=== PATIENT | male | born 1955 | race Caucasian/White ===

== ENCOUNTER 2022-12-01 10:59 | Inpatient (IN) | payer MEDICARE ==
[~2022-12-01 10:59] MED LIST: NALOXONE 0.4 MG/ML 1 ML VIAL IVP STA
[2022-12-01] MEDS ORDERED: DEXTROSE 50% SYRINGE 50 ML IVP STA (11:01)
[2022-12-01 11:09] LABS: Glucose,Whole Blood 21 mg/dL (70-110)
[2022-12-01 11:22] LABS: Glucose,Whole Blood 78 mg/dL (70-110)
--- NOTE | 2022-12-01 11:34 | CT ---
EXAMINATION TYPE: CT brain wo con DATE OF EXAM: 12/01/2022 COMPARISON: None HISTORY: Garland Meng male, confusion, Altered mental status TECHNIQUE: Examination was done in axial plane without intravenous contrast. Coronal and sagittal r econstructions performed. CT DLP: 1223.4 mGycm Automated exposure control for dose reduction was used. FINDINGS: There is no evidence of acute intracranial hemorrhage, acute ischemic changes, mass, mass-effect, or extra-axial fluid collection. There is no effacement of cerebral sulci or basal subarachnoid cister ns. There is no hydrocephalus. There is no midline shift. Briseno-white matter distinction is preserv ed. Mild periventricular white matter hypodensities. Moderate to severe mucosal thickening throughout the paranasal sinuses. Some layering fluid in the le ft frontal sinus. Orbits and globes are intact. Mastoid air cells well pneumatized. IMPRESSION: 1. No acute intracranial abnormality seen. Mild burden of chronic small vessel ischemic disease. 2. Moderate to severe chronic paranasal sinus disease. Possible superimposed acute left frontal sinus itis.
--- NOTE | 2022-12-01 11:48 | ED ---
General Adult HPI - General Stated complaint: Recheck Time Seen by Provider: 12/01/22 11:00 Source: patient, RN notes reviewed, old records reviewed - History of Present Illness Initial comments: This is a gentleman who is 67 years old. Patient comes in because the states he's been weak the last 2 days and last seen normal at 3 AM. states this morning when she saw him he was altered significantly. EMS states she was altered the way in and he was occasionally able to answer yes or no or follow some very basic commands but not consistently. EMS states that the patient had a low blood sugar of 64 but didn't give any glucose yet. Patient is unable to give any history is not yet here that is all the history we currently have. - Related Data Home Medications Medication Instructions Recorded Confirmed Atorvastatin [Lipitor] 20 mg PO DAILY 12/01/22 12/01/22 Metoprolol Tartrate [Lopressor] 100 mg PO BID 12/01/22 12/01/22 Pioglitazone [Actos] 45 mg PO DAILY 12/01/22 12/01/22 Tirzepatide [Mounjaro] 5 mg SQ MO 12/01/22 12/01/22 glyBURIDE/METFORMIN HCL 1 tab PO BID 12/01/22 12/01/22 [Glucovance 5-500 mg] ramipriL 2.5 mg PO DAILY 12/01/22 12/01/22 Allergies Allergy/AdvReac Type Severity Reaction Status Date / Time No Known Allergies Allergy Verified 12/01/22 11:07 Review of Systems ROS Statement: Those systems with pertinent positive or pertinent negative responses have been documented in the HPI. ROS Other: All systems not noted in ROS Statement are negative. General Exam - General Exam Comments Initial Comments: GENERAL: Patient is well-developed and well-nourished. Patient is nontoxic and well- hydrated and is in moderate distress. ENT: Neck is soft and supple. No significant lymphadenopathy is noted. Oropharynx is clear. Moist mucous membranes. EYES: The sclera were anicteric and conjunctiva were pink and moist. Unable to assess extraocular motion. PULMONARY: Patient has rhonchi bilaterally CARDIOVASCULAR: There is a regular rate and rhythm without any murmurs gallops or rubs. ABDOMEN: Soft and nontender with normal bowel sounds. SKIN: Skin is clear with no lesions or rashes and otherwise unremarkable. NEUROLOGIC: Patient is alert and oriented 0. Cranial nerves II through XII are grossly intact. Motor and sensory are also intact. Normal speech, volume and content. Symmetrical smile. MUSCULOSKELETAL: Normal extremities with adequate strength and full range of motion. 2+ edema LYMPHATICS: No significant lymphadenopathy is noted PSYCHIATRIC: Unable to assess Course Vital Signs 12/01/22 12/01/22 12/01/22 11:01 11:02 11:42 Temperature 96.6 F L 97.3 F L Pulse Rate 77 90 Respiratory 20 20 22 Rate Blood Pressure 152/72 91/63 O2 Sat by Pulse 90 L 95 Oximetry Medical Decision Making - Medical Decision Making EKG is interpreted by myself EKG shows atrial fibrillation at 96 bpm QRS is 111 QT interval 366 QTC is 419. EKG shows no ST segment elevation or depression Was pt. sent in by a medical professional or institution (, PA, LOT WORKER, urgent care, hospital, or correction...) When possible be specific @ -No Did you speak to anyone other than the patient for history (EMS, parent, family, police, friend...)? What history was obtained from this source @ -EMS gave all the history Did you review nursing and triage notes (agree or disagree)? Why? @ -I reviewed and agree with nursing and triage notes Were old charts reviewed (outside hosp., previous admission, EMS record, old EKG, old radiological studies, urgent care reports/EKG's, correction records)? Report findings @ -No old charts were reviewed Differential Diagnosis (chest pain, altered mental status, abdominal pain women, abdominal pain men, vaginal bleeding, weakness, fever, dyspnea, syncope, headache, dizziness, GI bleed, back pain, seizure, CVA, palpatations, mental health, musculoskeletal)? @ -Differential Altered Mental Status: Hypoglycemia, DKA, hypercapnia, ETOH, overdose, CO poisoning, trauma, myxedema coma, HTN encephalopathy, infection, encephalitis, psychosis, intercranial hemorrhage, hepatic encephalopathy, meningitis, CVA, this is not meant to be an all-inclusive list EKG interpreted by me (3pts min.). @ -As above X-rays interpreted by me (1pt min.). @ -Chest x-ray shows no paternal lateral view consistent with pneumonia CT interpreted by me (1pt min.). @ -CT of the brain shows no acute abnormality U/S interpreted by me (1pt. min.). @ -None done What testing was considered but not performed or refused? (CT, X-rays, U/S, labs)? Why? @ -None What meds were considered but not given or refused? Why? @ -None Did you discuss the management of the patient with other professionals (professionals i.e. , PA, LOT WORKER, lab, RT, psych nurse, social welfare clerk, senior research project manager, teacher, chief wellness officer, pillowcase cleaner)? Give summary @ -I spoke with [facility] hospitalist agreed to admit the patient Was smoking cessation discussed for >3mins.? @ -No Was critical care preformed (if so, how long)? @ -No Were there social determinants of health that impacted care today? How? (Homelessness, low income, unemployed, alcoholism, drug addiction, transportation, low edu. Level, literacy, decrease access to med. care, long term, rehab)? @ -No Was there de-escalation of care discussed even if they declined (Discuss DNR or withdrawal of care, Hospice)? DNR status @ -No What co-morbidities impacted this encounter? (DM, HTN, Smoking, COPD, CAD, Cancer, CVA, ARF, Chemo, Hep., AIDS, mental health diagnosis, sleep apnea, morbid obesity)? @ -None Was patient admitted / discharged? Hospital course, mention meds given and route, prescriptions, significant lab abnormalities, going to OR and other pertinent info. @ -Significantly altered when he arrived he was mottled and was not responding to staff at all. Patient's sugar was 21. The patient amp of D50 he started coming around slowly and eventually became alert and oriented to his baseline. Patient is coughing quite a bit in stating he's been sick for a few days x-ray shows pneumonia I will admit him and treat him for pneumonia. Undiagnosed new problem with uncertain prognosis? @ -No Drug Therapy requiring intensive monitoring for toxicity (Heparin, Nitro, Insulin, Cardizem)? @ -No Were any procedures done? @ -No Diagnosis/symptom? @ -Pneumonia Acute, or Chronic, or Acute on Chronic? @ -Acute Uncomplicated (without systemic symptoms) or Complicated (systemic symptoms)? @ -Complicated Side effects of treatment? @ -No Exacerbation, Progression, or Severe Exacerbation? @ -No Poses a threat to life or bodily function? How? (Chest pain, [place], [place], pneumonia, PE, COPD, DKA, ARF, appy, cholecystitis, CVA, Diverticulitis, Homicidal, Suicidal, threat to staff... and all critical care pts) @ -Yes this could lead to sepsis and end organ dysfunction Diagnosis/symptom? @ -Hypoglycemia Acute, or Chronic, or Acute on Chronic? @ -Acute Uncomplicated (without systemic symptoms) or Complicated (systemic symptoms)? @ -Complicated Side effects of treatment? @ -none Exacerbation, Progression, or Severe Exacerbation] @ -no Poses a threat to life or bodily function? @ -no - Lab Data Result diagrams: 12/01/22 11:37 12/01/22 11:37 Lab Results 12/01/22 12/01/22 12/01/22 Range/Units 11:03 11:21 11:37 WBC 6.5 (3.8-10.6) k/uL RBC 5.44 (4.30-5.90) m/uL Hgb 16.5 (13.0-17.5) gm/dL Hct 51.9 (39.0-53.0) % MCV 95.4 (80.0-100.0) fL MCH 30.3 (25.0-35.0) pg MCHC 31.8 (31.0-37.0) g/dL RDW 14.2 (11.5-15.5) % Plt Count 191 (150-450) k/uL MPV 10.1 Neutrophils % 66 % Lymphocytes % 15 % Monocytes % 17 % Eosinophils % 0 % Basophils % 0 % Neutrophils # 4.2 (1.3-7.7) k/uL Lymphocytes # 1.0 (1.0-4.8) k/uL Monocytes # 1.1 H (0-1.0) k/uL Eosinophils # 0.0 (0-0.7) k/uL Basophils # 0.0 (0-0.2) k/uL Hypochromasia Slight Sample Site ABG pH (7.35-7.45) ABG pCO2 (35-45) mmHg ABG pO2 (83-108) mmHg ABG HCO3 (21-25) mmol/L ABG Total CO2 (19-24) mmol/L ABG O2 Saturation (94-97) % ABG Base Excess mmol/L Andres Test FiO2 % Sodium (137-145) mmol/L Potassium (3.5-5.1) mmol/L Chloride (98-107) mmol/L Carbon Dioxide (22-30) mmol/L Anion Gap mmol/L BUN (9-20) mg/dL Creatinine (0.66-1.25) mg/dL Est GFR (CKD-EPI)AfAm (>60 ml/min/1.73 sqM) Est GFR (CKD-EPI)NonAf (>60 ml/min/1.73 sqM) Glucose (74-99) mg/dL POC Glucose (mg/dL) 21 L 78 (70-110) mg/dL POC Glu Sharepoint Analyst ID Edmond, Jake Pruitt, Jake Calcium (8.4-10.2) mg/dL Total Bilirubin (0.2-1.3) mg/dL AST (17-59) U/L ALT (4-49) U/L Alkaline Phosphatase (38-126) U/L Ammonia (<30) umol/L Troponin I (0.000-0.034) ng/mL Total Protein (6.3-8.2) g/dL Albumin (3.5-5.0) g/dL 12/01/22 12/01/22 12/01/22 Range/Units 11:37 11:37 11:37 WBC (3.8-10.6) k/uL RBC (4.30-5.90) m/uL Hgb (13.0-17.5) gm/dL Hct (39.0-53.0) % MCV (80.0-100.0) fL MCH (25.0-35.0) pg MCHC (31.0-37.0) g/dL RDW (11.5-15.5) % Plt Count (150-450) k/uL MPV Neutrophils % % Lymphocytes % % Monocytes % % Eosinophils % % Basophils % % Neutrophils # (1.3-7.7) k/uL Lymphocytes # (1.0-4.8) k/uL Monocytes # (0-1.0) k/uL Eosinophils # (0-0.7) k/uL Basophils # (0-0.2) k/uL Hypochromasia Sample Site ABG pH (7.35-7.45) ABG pCO2 (35-45) mmHg ABG pO2 (83-108) mmHg ABG HCO3 (21-25) mmol/L ABG Total CO2 (19-24) mmol/L ABG O2 Saturation (94-97) % ABG Base Excess mmol/L Andres Test FiO2 % Sodium 135 L (137-145) mmol/L Potassium 3.9 (3.5-5.1) mmol/L Chloride 98 (98-107) mmol/L Carbon Dioxide 25 (22-30) mmol/L Anion Gap 12 mmol/L BUN 28 H (9-20) mg/dL Creatinine 1.13 (0.66-1.25) mg/dL Est GFR (CKD-EPI)AfAm 77 (>60 ml/min/1.73 sqM) Est GFR (CKD-EPI)NonAf 66 (>60 ml/min/1.73 sqM) Glucose 134 H (74-99) mg/dL POC Glucose (mg/dL) (70-110) mg/dL POC Glu Sharepoint Analyst ID Calcium 8.2 L (8.4-10.2) mg/dL Total Bilirubin 1.7 H (0.2-1.3) mg/dL AST 47 (17-59) U/L ALT 26 (4-49) U/L Alkaline Phosphatase 69 (38-126) U/L Ammonia <9 (<30) umol/L Troponin I <0.012 (0.000-0.034) ng/mL Total Protein 8.0 (6.3-8.2) g/dL Albumin 4.0 (3.5-5.0) g/dL 12/01/22 12/01/22 12/01/22 Range/Units 11:53 12:20 12:45 WBC (3.8-10.6) k/uL RBC (4.30-5.90) m/uL Hgb (13.0-17.5) gm/dL Hct (39.0-53.0) % MCV (80.0-100.0) fL MCH (25.0-35.0) pg MCHC (31.0-37.0) g/dL RDW (11.5-15.5) % Plt Count (150-450) k/uL MPV Neutrophils % % Lymphocytes % % Monocytes % % Eosinophils % % Basophils % % Neutrophils # (1.3-7.7) k/uL Lymphocytes # (1.0-4.8) k/uL Monocytes # (0-1.0) k/uL Eosinophils # (0-0.7) k/uL Basophils # (0-0.2) k/uL Hypochromasia Sample Site r brach ABG pH 7.35 (7.35-7.45) ABG pCO2 47 H (35-45) mmHg ABG pO2 70 L (83-108) mmHg ABG HCO3 26 H (21-25) mmol/L ABG Total CO2 27 H (19-24) mmol/L ABG O2 Saturation 94.1 (94-97) % ABG Base Excess 0.0 mmol/L Andres Test na FiO2 32 % Sodium (137-145) mmol/L Potassium (3.5-5.1) mmol/L Chloride (98-107) mmol/L Carbon Dioxide (22-30) mmol/L Anion Gap mmol/L BUN (9-20) mg/dL Creatinine (0.66-1.25) mg/dL Est GFR (CKD-EPI)AfAm (>60 ml/min/1.73 sqM) Est GFR (CKD-EPI)NonAf (>60 ml/min/1.73 sqM) Glucose (74-99) mg/dL POC Glucose (mg/dL) 67 L 70 (70-110) mg/dL POC Glu Sharepoint Analyst ID Garland Tobiaselizabeth Ne Calcium (8.4-10.2) mg/dL Total Bilirubin (0.2-1.3) mg/dL AST (17-59) U/L ALT (4-49) U/L Alkaline Phosphatase (38-126) U/L Ammonia (<30) umol/L Troponin I (0.000-0.034) ng/mL Total Protein (6.3-8.2) g/dL Albumin (3.5-5.0) g/dL 12/01/22 Range/Units 14:14 WBC (3.8-10.6) k/uL RBC (4.30-5.90) m/uL Hgb (13.0-17.5) gm/dL Hct (39.0-53.0) % MCV (80.0-100.0) fL MCH (25.0-35.0) pg MCHC (31.0-37.0) g/dL RDW (11.5-15.5) % Plt Count (150-450) k/uL MPV Neutrophils % % Lymphocytes % % Monocytes % % Eosinophils % % Basophils % % Neutrophils # (1.3-7.7) k/uL Lymphocytes # (1.0-4.8) k/uL Monocytes # (0-1.0) k/uL Eosinophils # (0-0.7) k/uL Basophils # (0-0.2) k/uL Hypochromasia Sample Site ABG pH (7.35-7.45) ABG pCO2 (35-45) mmHg ABG pO2 (83-108) mmHg ABG HCO3 (21-25) mmol/L ABG Total CO2 (19-24) mmol/L ABG O2 Saturation (94-97) % ABG Base Excess mmol/L Andres Test FiO2 % Sodium (137-145) mmol/L Potassium (3.5-5.1) mmol/L Chloride (98-107) mmol/L Carbon Dioxide (22-30) mmol/L Anion Gap mmol/L BUN (9-20) mg/dL Creatinine (0.66-1.25) mg/dL Est GFR (CKD-EPI)AfAm (>60 ml/min/1.73 sqM) Est GFR (CKD-EPI)NonAf (>60 ml/min/1.73 sqM) Glucose (74-99) mg/dL POC Glucose (mg/dL) 110 (70-110) mg/dL POC Glu Sharepoint Analyst ID Ne Gillette Calcium (8.4-10.2) mg/dL Total Bilirubin (0.2-1.3) mg/dL AST (17-59) U/L ALT (4-49) U/L Alkaline Phosphatase (38-126) U/L Ammonia (<30) umol/L Troponin I (0.000-0.034) ng/mL Total Protein (6.3-8.2) g/dL Albumin (3.5-5.0) g/dL Disposition Clinical Impression: Altered mental status, Hypoglycemia, Pneumonia Disposition: ADMITTED IP TO THIS HOSP Referrals: None,Stated [REFERRING] - 1-2 days Time of Disposition: 14:26
[2022-12-01 11:57] LABS: ABG HCO3 26 mmol/L (21-25); ABG Oxygen Saturation 94.1 % (94-97); ABG PCO2 47 mmHg (35-45); ABG PH 7.35 (7.35-7.45); ABG PO2 70 mmHg (83-108); ABG TCO2 27 mmol/L (19-24)
[2022-12-01 12:15] LABS: Basophils % (A) 0 %; Eosinophils % (A) 0 %; HCT 51.9 % (39.0-53.0); HGB 16.5 gm/dL (13.0-17.5); Hypochromasia Slight; Lymphocytes % (A) 15 %; MCH 30.3 pg (25.0-35.0); MCHC 31.8 g/dL (31.0-37.0); MCV 95.4 fL (80.0-100.0); Mean Platelet Volume 10.1; Monocytes # (A) 1.1 k/uL (0-1.0); Monocytes % (A) 17 %; Neutrophils # (A) 4.2 k/uL (1.3-7.7); Neutrophils % (A) 66 %; Platelet Count 191 k/uL (150-450); RBC 5.44 m/uL (4.30-5.90); RDW 14.2 % (11.5-15.5); WBC 6.5 k/uL (3.8-10.6)
[2022-12-01 12:27] LABS: Glucose,Whole Blood 67 mg/dL (70-110)
[2022-12-01 12:31] LABS: ALT 26 U/L (4-49); African American GFR (CKD) 77 (>60 ml/min/1.73 sqM); Anion Gap 12 mmol/L; Blood Urea Nitrogen 28 mg/dL (9-20); Calcium 8.2 mg/dL (8.4-10.2); Carbon Dioxide 25 mmol/L (22-30); Chloride 98 mmol/L (98-107); Glucose 134 mg/dL (74-99); Non-African American GFR(CKD) 66 (>60 ml/min/1.73 sqM); Sodium 135 mmol/L (137-145); Total Bilirubin 1.7 mg/dL (0.2-1.3)
[2022-12-01 12:40] LABS: AST 47 U/L (17-59); Alkaline Phosphatase 69 U/L (38-126); Potassium 3.9 mmol/L (3.5-5.1)
--- NOTE | 2022-12-01 12:54 | XR ---
EXAMINATION TYPE: XR chest 2V DATE OF EXAM: 12/01/2022 COMPARISON: None HISTORY: 67-year-old male confusion, shortness of breath, altered mental status TECHNIQUE: AP and lateral views FINDINGS: Very low lung volumes and lordotic positioning limiting the evaluation. Heart appears mildly enlarged . Low lung volumes limits evaluation. Unable to exclude some abnormal opacity at the right base. IMPRESSION: Lordotic positioning and prominent hypoventilatory changes limits evaluation. The heart appears mildl y enlarged. Unable to exclude atelectasis or airspace disease at the right base.
[2022-12-01 12:57] LABS: Glucose,Whole Blood 70 mg/dL (70-110)
[2022-12-01] MEDS ORDERED: KETOROLAC 15 MG/ML 1 ML VIAL IVP STA (14:11)
[2022-12-01 14:16] LABS: Glucose,Whole Blood 110 mg/dL (70-110)
[2022-12-01] MEDS ORDERED: AZITHROMYCIN 500 MG in SODIUM CHLORIDE 0.9% 250 ML IVPB STA (14:26)
[2022-12-01] MEDS ORDERED: PNEUMONIA PROTOCOL UTILIZED 1 EACH MISC PO PRN (14:26)
[2022-12-01] MEDS: ALBUTEROL NEBULIZED 2.5 MG/3 ML INHALATION SCH ×2 (15:25→21:06)
[2022-12-01 15:59] LABS: Partial Thromboplastin Time 25.5 sec (22.0-30.0)
[2022-12-01 16:01] LABS: Appearance,Urine Cloudy (Clear); Bacteria,Urine Rare /hpf; Bilirubin,Urine Negative (Negative); Blood,Urine Negative (Negative); Color,Urine Yellow; Glucose,Urine (UA) 1+ (Negative); Hyaline Casts,Urine 25 /lpf (0-2); Ketones,Urine Negative (Negative); Leukocyte Esterase,Urine Negative (Negative); Mucus,Urine Rare /hpf; Nitrite,Urine Negative (Negative); PH, Urine 5.5 (5.0-8.0); Protein,Urine 1+ (Negative); RBC,Urine 1 /hpf (0-5); Specific Gravity,Urine 1.023 (1.001-1.035); Squamous Epithelial Cell,Urine <1 /hpf (0-4); WBC,Urine 3 /hpf (0-5)
[2022-12-01 16:11] LABS: Amphetamine Screen,Urine Not Detected (NotDetected); Barbiturate Screen,Urine Not Detected (NotDetected); Benzodiazepines Screen,Urine Not Detected (NotDetected); Cocaine Screen,Urine Not Detected (NotDetected); Methadone Screen, Urine Not Detected (NotDetected); Opiate Screen,Urine Not Detected (NotDetected); Oxycodone Screen, Urine Not Detected (NotDetected); Phencyclidine Screen,Urine Not Detected (NotDetected); Tricyclic Antidepressant,Urine Not Detected (NotDetected); Urn Cannabinoid Scrn Not Detected (NotDetected)
[2022-12-01 17:17] LABS: Glucose,Whole Blood 57 mg/dL (70-110)
[2022-12-01 17:47] LABS: Glucose,Whole Blood 79 mg/dL (70-110)
[2022-12-01] MEDS: metroNIDAZOLE-NS PMX 500 MG in SALINE 1 100ML.BAG IVPB SCH (19:17)
[2022-12-01 20:27] LABS: Glucose,Whole Blood 45 mg/dL (70-110)
[2022-12-01] MEDS ORDERED: DEXTROSE 50% SYRINGE 50 ML IVP PRN ×2 (20:44)
[2022-12-01 20:45] LABS: Glucose,Whole Blood 72 mg/dL (70-110)
[2022-12-01] MEDS: DEXTROSE 5%-0.9% NACL 1,000 ML IV SCH (21:04)
[2022-12-01] MEDS: INSULIN ASPART (NovoLOG) 100 UNIT/ML VIAL SQ SCH (21:06)
[2022-12-01] MEDS: METOPROLOL TARTRATE 50 MG TAB PO SCH (21:08)
[2022-12-01 22:24] LABS: Glucose,Whole Blood 106 mg/dL (70-110)
--- NOTE | 2022-12-01 23:32 | P.HPIM ---
History of Present Illness H&P Date: 12/01/22 Chief Complaint: Altered mental status Patient is a 67-year-old female with a known history of diabetes type 2 [id number], obstructive sleep apnea, asthma, prior history of smoking was brought to the hospital due to altered mental status. According to his patient has been very weak for the past 2 to 3 days and not eating well. Was last seen normal at about 3 AM. EMS was called due to altered mental status. He was: Planning. Patient has been taking his medications at home. Patient was very lethargic and barely awake on admission. He has been having watery diarrhea for the past 1 week. Denies any abdominal pain. Blood sugar was 21 on admission. Laboratory data showed WBC 6.4 hemoglobin 16.5 and platelets 191 Sodium 135 potassium 3.9 chloride 98 bicarb is 25 BUN 28 and creatinine 1.13 and blood sugar 134 after supplementation. Calcium 8.2 bilirubin level 1.7 liver enzymes are elevated troponin x1 negative Urinalysis is negative for infection. UDS negative. Chest x-ray showed lordotic positioning and prominent hypoventilatory changes Li mited evaluation. Heart appears mildly enlarged. Unable to exclude atelectasis or airspace disease at the right lung bases. EKG showed atrial fibrillation with aberrant conduction or ventricular premature complexes. CT head showed no acute intracranial abnormality seen. Mild burden of chronic small vessel ischemic disease. Moderate to severe chronic paraspinal disease. Possible superimposed acute left frontal sinusitis. Review of Systems ROS unobtainable: due to mental status Past Medical History Past Medical History: Asthma, Diabetes Mellitus, Sleep Apnea/CPAP/BIPAP Additional Past Medical History / Comment(s): Tachycardia History of Any Multi-Drug Resistant Organisms: None Reported Past Surgical History: Hernia Repair Past Anesthesia/Blood Transfusion Reactions: No Reported Reaction Past Psychological History: No Psychological Hx Reported Smoking Status: Former smoker, Unknown if ever smoked Past Alcohol Use History: None Reported Past Drug Use History: None Reported Medications and Allergies Home Medications Medication Instructions Recorded Confirmed Type Atorvastatin [Lipitor] 20 mg PO DAILY 12/01/22 12/01/22 History Metoprolol Tartrate [Lopressor] 100 mg PO BID 12/01/22 12/01/22 History Pioglitazone [Actos] 45 mg PO DAILY 12/01/22 12/01/22 History Tirzepatide [Mounjaro] 5 mg SQ MO 12/01/22 12/01/22 History glyBURIDE/METFORMIN HCL 1 tab PO BID 12/01/22 12/01/22 History [Glucovance 5-500 mg] ramipriL 2.5 mg PO DAILY 12/01/22 12/01/22 History Allergies Allergy/AdvReac Type Severity Reaction Status Date / Time No Known Allergies Allergy Verified 12/01/22 11:07 Physical Exam Vitals: Vital Signs Temp Pulse Pulse Resp BP BP Pulse Ox 12/01/22 20:17 98.9 F 95 22 103/63 94 L 12/01/22 18:43 110 H 18 114/68 94 L 12/01/22 17:24 98.7 F 96 18 117/66 98 12/01/22 16:00 96 18 123/63 97 12/01/22 15:33 96 18 12/01/22 15:28 98 18 98 12/01/22 15:00 94 18 99/61 98 12/01/22 14:34 90 18 132/59 98 12/01/22 11:42 97.3 F L 90 22 91/63 95 12/01/22 11:02 96.6 F L 77 20 152/72 90 L 12/01/22 11:01 20 Intake and Output 12/01/22 12/01/22 12/01/22 06:59 14:59 22:59 Other: Weight 113.398 kg 113.398 kg PHYSICAL EXAMINATION: Patient is lying in the bed comfortably, no acute distress, awake alert but lethargic and drowsy. HEENT: Normocephalic. Neck is supple. Pupils reactive. Nostrils clear. Oral cavity is moist. Neck reveals no JVD, carotid bruits, or thyromegaly. CHEST EXAMINATION: Trachea is central. Symmetrical expansion. Bibasilar diminished sounds. Coarse of breath sounds. Nonlabored breathing.. CARDIAC: Normal S1, S2 with no gallops. No murmurs ABDOMEN: Soft. Bowel sounds present. Nontender. No organomegaly. No abdominal bruits. Extremities: Bilateral lower extremity discoloration and venous stasis changes.. No clubbing or cyanosis Neurologically awake, alert, lethargic and weak. No gross focal neurological deficits noted Skin: No rash or skin lesions. Psychiatric: Coperative. Could not be assessed completely., Musculoskeletal: No joint swelling or deformity. Results CBC & Chem 7: 12/01/22 11:37 12/01/22 11:37 Labs: Abnormal Lab Results - Last 24 Hours (Table) 12/01/22 12/01/22 12/01/22 Range/Units 11:03 11:37 11:37 Monocytes # 1.1 H (0-1.0) k/uL ABG pCO2 (35-45) mmHg ABG pO2 (83-108) mmHg ABG HCO3 (21-25) mmol/L ABG Total CO2 (19-24) mmol/L Sodium 135 L (137-145) mmol/L BUN 28 H (9-20) mg/dL Glucose 134 H (74-99) mg/dL POC Glucose (mg/dL) 21 L (70-110) mg/dL Calcium 8.2 L (8.4-10.2) mg/dL Total Bilirubin 1.7 H (0.2-1.3) mg/dL Urine Protein (Negative) Urine Glucose (UA) (Negative) Urine Bacteria (None) /hpf Hyaline Casts (0-2) /lpf Urine Mucus (None) /hpf 12/01/22 12/01/22 12/01/22 Range/Units 11:53 12:20 15:41 Monocytes # (0-1.0) k/uL ABG pCO2 47 H (35-45) mmHg ABG pO2 70 L (83-108) mmHg ABG HCO3 26 H (21-25) mmol/L ABG Total CO2 27 H (19-24) mmol/L Sodium (137-145) mmol/L BUN (9-20) mg/dL Glucose (74-99) mg/dL POC Glucose (mg/dL) 67 L (70-110) mg/dL Calcium (8.4-10.2) mg/dL Total Bilirubin (0.2-1.3) mg/dL Urine Protein 1+ H (Negative) Urine Glucose (UA) 1+ H (Negative) Urine Bacteria Rare H (None) /hpf Hyaline Casts 25 H (0-2) /lpf Urine Mucus Rare H (None) /hpf 12/01/22 12/01/22 Range/Units 17:15 20:23 Monocytes # (0-1.0) k/uL ABG pCO2 (35-45) mmHg ABG pO2 (83-108) mmHg ABG HCO3 (21-25) mmol/L ABG Total CO2 (19-24) mmol/L Sodium (137-145) mmol/L BUN (9-20) mg/dL Glucose (74-99) mg/dL POC Glucose (mg/dL) 57 L 45 L (70-110) mg/dL Calcium (8.4-10.2) mg/dL Total Bilirubin (0.2-1.3) mg/dL Urine Protein (Negative) Urine Glucose (UA) (Negative) Urine Bacteria (None) /hpf Hyaline Casts (0-2) /lpf Urine Mucus (None) /hpf Thrombosis Risk Factor Assmnt - DVT/VTE Prophylaxis DVT/VTE Prophylaxis: Pharmacologic Prophylaxis ordered - Choose All That Apply Each Factor Represents 1 point: Obesity (BMI >25) Each Risk Factor Represents 2 Points: Age 61-74 years Thrombosis Risk Factor Assessment Total Risk Factor Score: 3 Thrombosis Risk Factor Assessment Level: Moderate Risk Assessment and Plan Assessment: Altered mental status due to hypoglycemia. Improving now Right basilar opacity possible pneumonia. Moderate to severe chronic paranasal sinus disease and acute left frontal sinu sitis. Acute diarrhea Atrial fibrillation with aberrant conduction Diabetes type 2 [id number]. Patient is on glipizide and metformin and Actos at home. Obstructive sleep apnea Prior history of smoking Asthma not in exacerbation Hypertension DVT prophylaxis with heparin subcu Plan: Patient will be continued on D5 normal saline due to hypoglycemia. Oral hypoglycemics is on hold. Continue to monitor CBG every hourly. Continue with antibiotics ceftriaxone and Flagyl for possible aspiration pneumonia. Follow-up culture reports. Cardiology evaluation due to atrial fibrillation/abnormal EKG. Discussed with his at bedside in detail. Prognosis is guarded at this time. Time with Patient: Greater than 30
[2022-12-02] MEDS: HEPARIN SODIUM,PORCINE/PF 5,000 UNIT/0.5 ML SYRINGE SQ SCH ×3 (00:06→17:33)
[2022-12-02] MEDS: metroNIDAZOLE-NS PMX 500 MG in SALINE 1 100ML.BAG IVPB SCH ×3 (00:06→17:30)
[2022-12-02 00:14] LABS: Glucose,Whole Blood 75 mg/dL (70-110)
[2022-12-02 02:12] LABS: Glucose,Whole Blood 106 mg/dL (70-110)
[2022-12-02] MEDS ORDERED: ACETAMINOPHEN TAB 325 MG TAB PO PRN (02:58)
[2022-12-02 04:00] LABS: Glucose,Whole Blood 89 mg/dL (70-110)
[2022-12-02 05:11] LABS: Glucose,Whole Blood 88 mg/dL (70-110)
[2022-12-02] MEDS: INSULIN ASPART (NovoLOG) 100 UNIT/ML VIAL SQ SCH ×4 (05:25→20:30)
[2022-12-02 06:16] LABS: Glucose,Whole Blood 93 mg/dL (70-110)
[2022-12-02 08:17] LABS: Glucose,Whole Blood 89 mg/dL (70-110)
[2022-12-02] MEDS: ALBUTEROL NEBULIZED 2.5 MG/3 ML INHALATION SCH ×4 (09:09→19:15)
[2022-12-02] MEDS: DEXTROSE 5%-0.9% NACL 1,000 ML IV SCH ×2 (09:20→17:43)
[2022-12-02] MEDS: METOPROLOL TARTRATE 50 MG TAB PO SCH ×2 (09:24→20:55)
[2022-12-02] MEDS: lisinopriL 10 MG TAB PO SCH (09:24)
--- NOTE | 2022-12-02 09:44 | XR ---
EXAMINATION TYPE: XR chest 2V DATE OF EXAM: 12/02/2022 COMPARISON: 12/01/2022 HISTORY: 67-year-old male pneumonia TECHNIQUE: AP and lateral views FINDINGS: Limited by lordotic positioning and large body habitus. Asymmetric opacity at the right lower lung pa rtially obscuring the right heart margin. Unclear if this corresponds to focal airspace disease, subp ulmonic effusion, or asymmetric elevation of the right hemidiaphragm. Heart is at least borderline en larged. IMPRESSION: Limited, lordotic exam. There is asymmetric opacity at the right base. Unclear if this represents con solidation/airspace disease, subpulmonic effusion, or asymmetric elevation of the right hemidiaphragm . Borderline cardiomegaly.
[2022-12-02 10:03] LABS: Glucose,Whole Blood 137 mg/dL (70-110)
[2022-12-02] MEDS: ATORVASTATIN 20 MG TAB PO SCH (10:19)
[2022-12-02] MEDS: AZITHROMYCIN 500 MG TAB PO SCH (10:19)
--- NOTE | 2022-12-02 11:11 | P.CRDCN ---
History of Present Illness History of present illness: HISTORY OF PRESENTING ILLNESS Patient is a pleasant 67-year-old male with history of diabetes mellitus type 2, obstructive sleep apnea,hypertension, reports of some arrhythmia (seeing Dr Melodie richard in the past) who presents secondary to weakness, altered mental status. Patient has had decreased appetite, feeling sick and diarrhea every few hours or the past 1 week. Patient's has had similar symptoms however not as severe. Patient is feeling more confused and therefore EMS called and found to have low glucose. Glucose was corrected and currently feels somewhat better however sti ll mildly confused. EKG did show irregular rhythm without any obvious P waves however some artifact however appears consistent with A. fib. He has not been on any telemetry. He does appear irregular on exam. He states he was placed on blood thinners in the past however "did not like them "because they caused to be cold. Did not have any significant hematochezia or melena. Currently heart rat es have been controlled. BUN 28, creatinine 1.1, troponin negative 1, bilirubin 1.7, white blood cell 6.4, hemoglobin 16.5. REVIEW OF SYSTEMS At the time of my exam: CONSTITUTIONAL: Denies fever or chills. CARDIOVASCULAR: Denies chest pain, +chronic shortness of breath, no orthopnea, PND or palpitations. RESPIRATORY: Denies cough. GASTROINTESTINAL: Denies abdominal pain, +diarrhea, no constipation, nausea or vomiting. MUSCULOSKELETAL: Denies myalgias. NEUROLOGIC: Denies numbness, tingling or weakness. ENDOCRINE: Denies fatigue, weight change, polydipsia or polyurina. GENITOURINARY: Denies burning, hematuria or urgency with micturation. HEMATOLOGIC: Denies history of anemia or bleeding. PHYSICAL EXAMINATION Vital signs reviewed. CONSTITUTIONAL: No apparent distress. Obese HEENT: Head is normocephalic. Pupils are equal, round. Sclerae anicteric. Mucous membranes of the mouth are moist. No JVD. No carotid bruit. CHEST EXAMINATION: Lungs are clear to auscultation. No chest wall tenderness is noted on palpation or with deep breathing. HEART EXAMINATION: Irregular rate and rhythm. S1, S2 heard. No murmurs, gallops or rub. ABDOMEN: Soft, nontender. Positive bowel sounds. EXTREMITIES: 2+ peripheral pulses, no lower extremity edema and no calf tenderness. NEUROLOGIC EXAMINATION: Patient is awake, alert, mildly confused ASSESSMENT 1. Altered mental status, likely mainly related to hypoglycemia 2. Recent decreased appetite, nausea, diarrhea appears GI source 3. EKG appears consistent with A. fib, unclear if prior history of A. fib 4. Hypertension 5. Diabetes mellitus type 2 6. Obesity 7. Obstructive sleep apnea PLAN EKG appears consistent with atrial fibrillation. Obtain records from office with possible previous diagnosis of A. fib with patient being on anticoagulation in the past however patient and do not recall specific diagnosis. Place patient on telemetry to further evaluate degree of A. fib burden and heart rates. If truly A. fib, would recommend anticoagulation however patient somewhat hesitant. Otherwise majority of symptoms appear related to sepsis, GI infection. Past Medical History Past Medical History: Asthma, Diabetes Mellitus, Sleep Apnea/CPAP/BIPAP Additional Past Medical History / Comment(s): Tachycardia History of Any Multi-Drug Resistant Organisms: None Reported Past Surgical History: Hernia Repair Past Anesthesia/Blood Transfusion Reactions: No Reported Reaction Past Psychological History: No Psychological Hx Reported Smoking Status: Former smoker, Unknown if ever smoked Past Alcohol Use History: None Reported Past Drug Use History: None Reported Medications and Allergies Home Medications Medication Instructions Recorded Confirmed Type Atorvastatin [Lipitor] 20 mg PO DAILY 12/01/22 12/01/22 History Metoprolol Tartrate [Lopressor] 100 mg PO BID 12/01/22 12/01/22 History Pioglitazone [Actos] 45 mg PO DAILY 12/01/22 12/01/22 History Tirzepatide [Mounjaro] 5 mg SQ MO 12/01/22 12/01/22 History glyBURIDE/METFORMIN HCL 1 tab PO BID 12/01/22 12/01/22 History [Glucovance 5-500 mg] ramipriL 2.5 mg PO DAILY 12/01/22 12/01/22 History Allergies Allergy/AdvReac Type Severity Reaction Status Date / Time No Known Allergies Allergy Verified 12/01/22 11:07 Physical Exam Vitals: Vital Signs Temp Pulse Pulse Resp BP BP Pulse Ox 12/02/22 09:18 75 12/02/22 09:09 74 92 L 12/02/22 06:59 98.2 F 88 18 113/71 91 L 12/02/22 05:02 98.6 F 12/02/22 01:49 100.1 F H 76 20 116/64 92 L 12/01/22 21:19 80 12/01/22 21:06 78 12/01/22 20:17 98.9 F 95 22 103/63 94 L 12/01/22 18:43 110 H 18 114/68 94 L 12/01/22 17:24 98.7 F 96 18 117/66 98 12/01/22 16:00 96 18 123/63 97 12/01/22 15:33 96 18 12/01/22 15:28 98 18 98 12/01/22 15:00 94 18 99/61 98 12/01/22 14:34 90 18 132/59 98 12/01/22 11:42 97.3 F L 90 22 91/63 95 Intake and Output 12/01/22 12/02/22 12/02/22 22:59 06:59 14:59 Output Total 250 Balance -250 Output: Urine 250 Other: Weight 113.398 kg Results 12/01/22 11:37 12/01/22 11:37 Cardiac Enzymes 12/01/22 12/01/22 Range/Units 11:37 11:37 AST 47 (17-59) U/L Troponin I <0.012 (0.000-0.034) ng/mL Coagulation 12/01/22 Range/Units 15:02 PT 11.0 (9.0-12.0) sec APTT 25.5 (22.0-30.0) sec CBC 12/01/22 Range/Units 11:37 WBC 6.5 (3.8-10.6) k/uL RBC 5.44 (4.30-5.90) m/uL Hgb 16.5 (13.0-17.5) gm/dL Hct 51.9 (39.0-53.0) % Plt Count 191 (150-450) k/uL Comprehensive Metabolic Panel 12/01/22 Range/Units 11:37 Sodium 135 L (137-145) mmol/L Potassium 3.9 (3.5-5.1) mmol/L Chloride 98 (98-107) mmol/L Carbon Dioxide 25 (22-30) mmol/L BUN 28 H (9-20) mg/dL Creatinine 1.13 (0.66-1.25) mg/dL Glucose 134 H (74-99) mg/dL Calcium 8.2 L (8.4-10.2) mg/dL AST 47 (17-59) U/L ALT 26 (4-49) U/L Alkaline Phosphatase 69 (38-126) U/L Total Protein 8.0 (6.3-8.2) g/dL Albumin 4.0 (3.5-5.0) g/dL Current Medications Generic Name Dose Route Start Last Admin Trade Name Freq PRN Reason Stop Dose Admin Acetaminophen 650 mg 12/02/22 02:58 12/02/22 03:41 Acetaminophen Tab 325 Mg Tab PO 650 mg Q6HR PRN Administration Fever and/ or Pain Albuterol Sulfate 2.5 mg 12/01/22 16:00 12/02/22 09:09 Albuterol Nebulized 2.5 Mg/3 Ml INHALATION 2.5 mg RT-QID ARNOLD Administration Atorvastatin Calcium 20 mg 12/02/22 09:00 12/02/22 10:19 Atorvastatin 20 Mg Tab PO 20 mg DAILY ARNOLD Administration Azithromycin 500 mg 12/02/22 09:00 12/02/22 10:19 Azithromycin 500 Mg Tab PO 12/03/22 09:01 500 mg DAILY ARNOLD Administration Protocol Dextrose/Water 25 ml 12/01/22 20:44 Dextrose 50% Syringe 50 Ml IVP PER PROTOCOL PRN Hypoglycemia Protocol Dextrose/Water 50 ml 12/01/22 20:44 Dextrose 50% Syringe 50 Ml IVP PER PROTOCOL PRN Hypoglycemia Protocol Heparin Sodium (Porcine) 5,000 unit 12/02/22 00:00 12/02/22 09:25 Heparin Sodium,Porcine/Pf 5,000 Unit/0.5 Ml Syringe SQ 5,000 unit Q8HR ARNOLD Administration Ceftriaxone Sodium 2 gm/ 50 mls @ 100 mls/hr 12/02/22 09:00 12/02/22 09:24 Sodium Chloride IVPB 12/05/22 09:29 100 mls/hr Q24HR ARNOLD Administration Protocol Metronidazole 500 mg/ IV 100 mls @ 100 mls/hr 12/01/22 16:00 12/02/22 09:21 Solution IVPB 100 mls/hr Q8HR ARNOLD Administration Protocol Dextrose/Sodium Chloride 1,000 mls @ 100 mls/hr 12/01/22 20:45 12/02/22 09:20 Dextrose 5%-Ns Iv Soln IV 100 mls/hr .Q10H ARNOLD Administration Insulin Aspart 0 unit 12/01/22 21:00 12/02/22 05:25 Insulin Aspart (Novolog) 100 Unit/Ml Vial SQ Not Given ACHS [facility] Protocol Lisinopril 10 mg 12/02/22 09:00 12/02/22 09:24 Lisinopril 10 Mg Tab PO 10 mg DAILY ARNOLD Administration Metoprolol Tartrate 100 mg 12/01/22 21:00 12/02/22 09:24 Metoprolol Tartrate 50 Mg Tab PO 100 mg BID ARNOLD Administration Miscellaneous Information 1 each 12/01/22 14:26 Pneumonia Protocol Utilized 1 Each Misc PO ONCE PRN Per Protocol Intake and Output 12/01/22 12/02/22 12/02/22 22:59 06:59 14:59 Output Total 250 Balance -250 Output: Urine 250 Other: Weight 113.398 kg 12/01/22 11:37 12/01/22 11:37
[2022-12-02 11:59] LABS: Glucose,Whole Blood 124 mg/dL (70-110)
[2022-12-02 14:07] LABS: Glucose,Whole Blood 167 mg/dL (70-110)
[2022-12-02 15:43] LABS: ALT 21 U/L (4-49); AST 38 U/L (17-59); African American GFR (CKD) >90 (>60 ml/min/1.73 sqM); Albumin 2.6 g/dL (3.5-5.0); Albumin/Globulin Ratio 0.9; Alkaline Phosphatase 63 U/L (38-126); Anion Gap 7 mmol/L; Blood Urea Nitrogen 22 mg/dL (9-20); Calcium 7.4 mg/dL (8.4-10.2); Carbon Dioxide 27 mmol/L (22-30); Chloride 99 mmol/L (98-107); Globulin 2.8 g/dL; Glucose 167 mg/dL (74-99); Non-African American GFR(CKD) >90 (>60 ml/min/1.73 sqM); Sodium 133 mmol/L (137-145); Total Bilirubin 0.9 mg/dL (0.2-1.3); Total Protein 5.4 g/dL (6.3-8.2)
[2022-12-02 15:44] LABS: Basophils % (A) 0 %; Eosinophils % (A) 0 %; HCT 43.3 % (39.0-53.0); HGB 13.7 gm/dL (13.0-17.5); Lymphocytes # (A) 0.7 k/uL (1.0-4.8); Lymphocytes % (A) 9 %; MCH 29.9 pg (25.0-35.0); MCHC 31.8 g/dL (31.0-37.0); MCV 94.1 fL (80.0-100.0); Mean Platelet Volume 8.6; Monocytes # (A) 0.8 k/uL (0-1.0); Monocytes % (A) 11 %; Neutrophils % (A) 78 %; Platelet Count 176 k/uL (150-450); RDW 14.1 % (11.5-15.5); WBC 7.7 k/uL (3.8-10.6)
[2022-12-02 16:03] LABS: Glucose,Whole Blood 194 mg/dL (70-110)
[2022-12-02 18:35] LABS: Glucose,Whole Blood 175 mg/dL (70-110)
[2022-12-02] MEDS: SODIUM CHLORIDE 0.9% 1,000 ML IV SCH (20:14)
[2022-12-02 20:20] LABS: Glucose,Whole Blood 133 mg/dL (70-110)
[2022-12-02 21:58] LABS: Glucose,Whole Blood 137 mg/dL (70-110)
--- NOTE | 2022-12-02 22:08 | P.PN ---
Subjective Progress Note Date: 12/02/22 Patient is a 67-year-old female with a known history of diabetes type 2 [id number], obstructive sleep apnea, asthma, prior history of smoking was brought to the hospital due to altered mental status. According to his patient has been very weak for the past 2 to 3 days and not eating well. Was last seen normal at about 3 AM. EMS was called due to altered mental status. He was: Planning. Patient has been taking his medications at home. Patient was very lethargic and barely awake on admission. He has been having watery diarrhea for the past 1 week. Denies any abdominal pain. Blood sugar was 21 on admission. Laboratory data showed WBC 6.4 hemoglobin 16.5 and platelets 191 Sodium 135 potassium 3.9 chloride 98 bicarb is 25 BUN 28 and creatinine 1.13 and blood sugar 134 after supplementation. Calcium 8.2 bilirubin level 1.7 liver enzymes are elevated troponin x1 negative Urinalysis is negative for infection. UDS negative. Chest x-ray showed lordotic positioning and prominent hypoventilatory changes Limited evaluation. Heart appears mildly enlarged. Unable to exclude a telectasis or airspace disease at the right lung bases. EKG showed atrial fibrillation with aberrant conduction or ventricular premature complexes. CT head showed no acute intracranial abnormality seen. Mild burden of chronic small vessel ischemic disease. Moderate to severe chronic paraspinal disease. Possible superimposed acute left frontal sinusitis. 12/02/2022 Patient is currently resting in bed. Awake alert and oriented x3. No complaints of chest pain. Does have congested cough. No complaints of abdominal pain. No nausea vomiting. Diarrhea improving. Patient has been afebrile. Currently requiring 2 L oxygen via nasal cannula. Chest x-ray this morning showed there is asymmetric opacity at the right base. Unclear if this represents consolidation/airspace disease. Sup pulmonary effusion or asymmetric elevation of the right hemidiaphragm. Laboratory data showed WBC 7.7 hemoglobin 13.7 and platelets 176. Sodium 133 potassium 4.0 chloride 99 bicarb is 27 BUN 2020 creatinine 0.81 and blood sugar is 167. Patient is being continued on D5 half normal saline. TSH is 0.95 Patient is being continued ceftriaxone and Flagyl. Cardiology is on board. EKG consistent with atrial fibrillation. Objective - Vital Signs Vital signs: Vital Signs Temp 100.0 F H 12/02/22 14:10 Pulse 84 12/02/22 16:11 Resp 18 12/02/22 14:10 BP 111/66 12/02/22 14:10 Pulse Ox 91 L 12/02/22 14:10 FiO2 Intake & Output 12/01/22 12/02/22 12/02/22 18:59 06:59 18:59 Output Total 250 Balance -250 Weight 113.398 kg 113.398 kg Output: Urine 250 Other: # Voids 5 # Bowel Movements 0 - Exam PHYSICAL EXAMINATION: Patient is lying in the bed comfortably, no acute distress, awake alert but lethargic and drowsy. HEENT: Normocephalic. Neck is supple. Pupils reactive. Nostrils clear. Oral cavity is moist. Neck reveals no JVD, carotid bruits, or thyromegaly. CHEST EXAMINATION: Trachea is central. Symmetrical expansion. Bibasilar Coarse of breath sounds. Nonlabored breathing.. CARDIAC: Normal S1, S2 with no gallops. No murmurs ABDOMEN: Soft. Bowel sounds present. Nontender. No organomegaly. No abdominal bruits. Extremities: Bilateral lower extremity discoloration and venous stasis changes.. No clubbing or cyanosis Neurologically awake, alert, lethargic and weak. No gross focal neurological deficits noted Skin: No rash or skin lesions. Psychiatric: Coperative. Could not be assessed completely., Musculoskeletal: No joint swelling or deformity. - Labs CBC & Chem 7: 12/02/22 14:48 12/02/22 14:48 Labs: Abnormal Lab Results - Last 24 Hours (Table) 12/01/22 12/02/22 12/02/22 Range/Units 20:23 10:02 11:58 Lymphocytes # (1.0-4.8) k/uL Sodium (137-145) mmol/L BUN (9-20) mg/dL Glucose (74-99) mg/dL POC Glucose (mg/dL) 45 L 137 H 124 H (70-110) mg/dL Calcium (8.4-10.2) mg/dL Total Protein (6.3-8.2) g/dL Albumin (3.5-5.0) g/dL 12/02/22 12/02/22 12/02/22 Range/Units 14:05 14:48 14:48 Lymphocytes # 0.7 L (1.0-4.8) k/uL Sodium 133 L (137-145) mmol/L BUN 22 H (9-20) mg/dL Glucose 167 H (74-99) mg/dL POC Glucose (mg/dL) 167 H (70-110) mg/dL Calcium 7.4 L (8.4-10.2) mg/dL Total Protein 5.4 L (6.3-8.2) g/dL Albumin 2.6 L (3.5-5.0) g/dL 12/02/22 12/02/22 Range/Units 16:01 18:34 Lymphocytes # (1.0-4.8) k/uL Sodium (137-145) mmol/L BUN (9-20) mg/dL Glucose (74-99) mg/dL POC Glucose (mg/dL) 194 H 175 H (70-110) mg/dL Calcium (8.4-10.2) mg/dL Total Protein (6.3-8.2) g/dL Albumin (3.5-5.0) g/dL Assessment and Plan Assessment: Altered mental status due to hypoglycemia. Improved now Right basilar opacity possible pneumonia. Moderate to severe chronic paranasal sinus disease and acute left frontal sinusitis. Acute diarrhea Possible gastroenteritis. Atrial fibrillation with aberrant conduction Diabetes type 2 [id number]. Patient is on glipizide and metformin and Actos at home. Obstructive sleep apnea Prior history of smoking Asthma not in exacerbation Hypertension DVT prophylaxis with heparin subcu Plan: Patient will be continued on D5 normal saline due to hypoglycemia.Will be changed to normal saline once hypoglycemia resolves. Oral hypoglycemics is on hold. Continue to monitor CBG every hourly. Continue with antibiotics ceftriaxone and Flagyl for possible aspiration pneumonia. Follow-up procalcitonin level. Follow-up culture reports. Cardiology evaluation due to atrial fibrillation. Discussed with his at bedside in detail. Prognosis is guarded at this time. Time with Patient: Greater than 30
[2022-12-02 23:56] LABS: Glucose,Whole Blood 134 mg/dL (70-110)
[2022-12-03] MEDS: metroNIDAZOLE-NS PMX 500 MG in SALINE 1 100ML.BAG IVPB SCH ×3 (01:22→15:46)
[2022-12-03] MEDS: HEPARIN SODIUM,PORCINE/PF 5,000 UNIT/0.5 ML SYRINGE SQ SCH ×2 (01:23→10:20)
[2022-12-03 02:01] LABS: Glucose,Whole Blood 141 mg/dL (70-110)
[2022-12-03 04:30] LABS: Glucose,Whole Blood 136 mg/dL (70-110)
[2022-12-03 05:51] LABS: Glucose,Whole Blood 144 mg/dL (70-110)
[2022-12-03] MEDS: INSULIN ASPART (NovoLOG) 100 UNIT/ML VIAL SQ SCH ×4 (06:01→21:33)
[2022-12-03 08:22] LABS: Glucose,Whole Blood 140 mg/dL (70-110)
[2022-12-03] MEDS: ALBUTEROL NEBULIZED 2.5 MG/3 ML INHALATION SCH ×4 (08:57→20:20)
--- NOTE | 2022-12-03 09:15 | P.PN ---
Subjective Progress Note Date: 12/03/22 HISTORY OF PRESENTING ILLNESS Patient is a pleasant 67-year-old male with history of diabetes mellitus type 2, obstructive sleep apnea,hypertension, reports of some arrhythmia (seeing Dr Shelton in the past) who presents secondary to weakness, altered mental status. Patient has had decreased appetite, feeling sick and diarrhea every few hours or the past 1 week. Patient's has had similar symptoms however not as severe. Patient is feeling more confused and therefore EMS called and found to have low glucose. Glucose was corrected and currently feels somewhat better however still mildly confused. EKG did show irregular rhythm without any obvious P waves however some artifact however appears consistent with A. fib. He has not been on any telemetry. He does appear irregular on exam. He states he was placed on blood thinners in the past however "did not like them "because they caused to be cold. Did not have any significant hematochezia or melena. Currently heart rates have been controlled. BUN 28, creatinine 1.1, troponin negative 1, bilirubin 1.7, white blood cell 6.4, hemoglobin 16.5. 12/03 Patient is seen today in follow-up. Reviewed documentation from the office and patient was last seen in 2014 but is known to have A. fib. At that time, EF was 35% and he also underwent a JASS and cardioversion for atrial flutter converting to sinus rhythm. Echocardiogram will be ordered. Patient is currently in a sinus rhythm. Heart rate is in the 70s and 80s, blood pressure 115/74, pulse ox 96% on 4 L. Blood work for today results are pending. PHYSICAL EXAMINATION Vital signs reviewed. CONSTITUTIONAL: No apparent distress. Obese HEENT: Head is normocephalic. Pupils are equal, round. Sclerae anicteric. Mucous membranes of the mouth are moist. No JVD. No carotid bruit. CHEST EXAMINATION: Lungs are clear to auscultation. No chest wall tenderness is noted on palpation or with deep breathing. HEART EXAMINATION: Irregular rate and rhythm. S1, S2 heard. No murmurs, gallops or rub. ABDOMEN: Soft, nontender. Positive bowel sounds. EXTREMITIES: 2+ peripheral pulses, no lower extremity edema and no calf tenderness, chronic dark skin changes to bilateral lower legs. NEUROLOGIC EXAMINATION: Patient is awake, alert, confused ASSESSMENT 1. Altered mental status, likely mainly related to hypoglycemia 2. Recent decreased appetite, nausea, diarrhea appears GI source 3. EKG appears consistent with A. fib, with prior history of paroxysmal A. fib 4. Hypertension 5. Diabetes mellitus type 2 6. Obesity 7. Obstructive sleep apnea PLAN Continue current cardiac medications Obtain 2-D echocardiogram Start patient on Xarelto 20 mg daily Further recommendations as patient progresses. Nurse practitioner note has been reviewed, I agree with the documented findings and plan of care. Patient was seen and examined. Objective - Vital Signs Vital signs: Vital Signs Temp 99.1 F 12/03/22 00:11 Pulse 89 12/03/22 00:11 Resp 22 12/03/22 00:11 BP 123/69 12/03/22 00:11 Pulse Ox 92 L 12/03/22 00:11 FiO2 Intake & Output 12/02/22 12/03/22 12/03/22 18:59 06:59 18:59 Other: # Voids 5 2 # Bowel Movements 0 - Labs CBC & Chem 7: 12/02/22 14:48 12/02/22 14:48 Labs: Abnormal Lab Results - Last 24 Hours (Table) 12/02/22 12/02/22 12/02/22 Range/Units 10:02 11:58 14:05 Lymphocytes # (1.0-4.8) k/uL Sodium (137-145) mmol/L BUN (9-20) mg/dL Glucose (74-99) mg/dL POC Glucose (mg/dL) 137 H 124 H 167 H (70-110) mg/dL Hemoglobin A1c (<=6.0) % Calcium (8.4-10.2) mg/dL Total Protein (6.3-8.2) g/dL Albumin (3.5-5.0) g/dL 12/02/22 12/02/22 12/02/22 Range/Units 14:48 14:48 14:48 Lymphocytes # 0.7 L (1.0-4.8) k/uL Sodium 133 L (137-145) mmol/L BUN 22 H (9-20) mg/dL Glucose 167 H (74-99) mg/dL POC Glucose (mg/dL) (70-110) mg/dL Hemoglobin A1c 7.4 H (<=6.0) % Calcium 7.4 L (8.4-10.2) mg/dL Total Protein 5.4 L (6.3-8.2) g/dL Albumin 2.6 L (3.5-5.0) g/dL 12/02/22 12/02/22 12/02/22 Range/Units 16:01 18:34 20:14 Lymphocytes # (1.0-4.8) k/uL Sodium (137-145) mmol/L BUN (9-20) mg/dL Glucose (74-99) mg/dL POC Glucose (mg/dL) 194 H 175 H 133 H (70-110) mg/dL Hemoglobin A1c (<=6.0) % Calcium (8.4-10.2) mg/dL Total Protein (6.3-8.2) g/dL Albumin (3.5-5.0) g/dL 12/02/22 12/02/22 12/03/22 Range/Units 21:55 23:54 01:59 Lymphocytes # (1.0-4.8) k/uL Sodium (137-145) mmol/L BUN (9-20) mg/dL Glucose (74-99) mg/dL POC Glucose (mg/dL) 137 H 134 H 141 H (70-110) mg/dL Hemoglobin A1c (<=6.0) % Calcium (8.4-10.2) mg/dL Total Protein (6.3-8.2) g/dL Albumin (3.5-5.0) g/dL 12/03/22 12/03/22 Range/Units 04:28 05:46 Lymphocytes # (1.0-4.8) k/uL Sodium (137-145) mmol/L BUN (9-20) mg/dL Glucose (74-99) mg/dL POC Glucose (mg/dL) 136 H 144 H (70-110) mg/dL Hemoglobin A1c (<=6.0) % Calcium (8.4-10.2) mg/dL Total Protein (6.3-8.2) g/dL Albumin (3.5-5.0) g/dL Microbiology - Last 24 Hours (Table) 12/02/22 04:05 Gram Stain - Preliminary Sputum 12/01/22 11:05 Blood Culture - Preliminary Blood 12/01/22 11:20 Blood Culture - Preliminary Blood
[2022-12-03] MEDS: lisinopriL 10 MG TAB PO SCH (09:29)
[2022-12-03] MEDS: ATORVASTATIN 20 MG TAB PO SCH (09:29)
[2022-12-03] MEDS: METOPROLOL TARTRATE 50 MG TAB PO SCH ×2 (09:29→20:19)
[2022-12-03] MEDS: AZITHROMYCIN 500 MG TAB PO SCH (09:31)
[2022-12-03 10:15] LABS: Glucose,Whole Blood 134 mg/dL (70-110)
[2022-12-03 11:00] LABS: HCT 42.8 % (39.0-53.0); HGB 13.7 gm/dL (13.0-17.5); MCH 29.9 pg (25.0-35.0); MCHC 31.9 g/dL (31.0-37.0); MCV 93.9 fL (80.0-100.0); Mean Platelet Volume 8.3; Platelet Count 220 k/uL (150-450); RBC 4.56 m/uL (4.30-5.90); RDW 14.1 % (11.5-15.5); WBC 7.7 k/uL (3.8-10.6)
[2022-12-03 11:57] LABS: Glucose,Whole Blood 113 mg/dL (70-110)
[2022-12-03 12:08] LABS: Lymphocytes # (M) 1.23 k/uL (1.0-4.8); Monocytes # (M) 1.08 k/uL (0-1.0); Neutrophils # (M) 5.39 k/uL (1.3-7.7); Neutrophils % (M) 70 %; Nucleated Red Blood Cells 0 /100 WBC (0-0); RBC Morphology Normal; Total Cells Counted 100
[2022-12-03] MEDS: SODIUM CHLORIDE 0.9% 1,000 ML IV SCH (12:10)
[2022-12-03 14:01] LABS: Glucose,Whole Blood 170 mg/dL (70-110)
[2022-12-03] MEDS ORDERED: SODIUM CHLORIDE 0.9% 500 ML 500 ML IV ONE (15:06)
--- NOTE | 2022-12-03 15:56 | XR ---
EXAMINATION TYPE: XR chest 1V portable DATE OF EXAM: 12/03/2022 COMPARISON: 12/02/2021 HISTORY: Pneumonia TECHNIQUE: Single frontal view of the chest is obtained. FINDINGS: Stable right lower lobe infiltrate and small moderate pleural effusion. Heart size is stab le and appears to be enlarged. There is left lower lobe infiltrate now seen. No overt failure or pneu mothorax. Limited inspiration. Hypertrophic changes of the spine. IMPRESSION: 1. Stable right lower lobe infiltrate and small to moderate right pleural effusion. 2. New left lower lobe infiltrate.
[2022-12-03 16:13] LABS: Glucose,Whole Blood 144 mg/dL (70-110)
--- NOTE | 2022-12-03 16:50 | CDI ---
Documentation Clarification Form Date: 12/03/2022 04:30:52 PM From: Sylvia Arriaga RN, CCDS Admit Date: 12/01/2022 02:28:00 PM Patient Name: Kali Oreilly Visit Number: [id number] Discharge Date: ATTENTION: The Clinical Documentation Specialists (CDI) and [facility] Coding Staff appreciate your assistance in clarifying documentation. Please respond to the clarification below the line at the bottom and electronically sign. The CDI & [facility] Coding staff will review the response and follow-up if needed. Please note: Queries are made part of the Legal Health Record. If you have any questions, please contact the author of this message via ITS. Dr. David Schroeder Your patient has the documented symptom of Altered Mental Status due to hypoglycemia. Additional clarification regarding the etiology/cause of this symptom is requested. History/Risk Factors: Atrial fibrillation Diabetes Mellitus, Obstructive sleep apnea, Hypertension, Asthma Clinical Indicators: 67-year-old male present with weakness, altered mental status last 2 days. EMS found blood sugar of 64. No treatment in the field. 12/01 Lab 134, 78, 1 CT Brain: No acute intracranial abnormality seen. Mild burden of chronic small vessel ischemic disease. Moderate to severe chronic paranasal sinus disease. Treatment: D50 50 ml IVP Once 12/01 D5 NS 1,000 mls IV @100 msl/hr. 12/01-12/02 Oral hypoglycemics on hold Glipizide, Metformin, Actos, continue to monitor CBG every hour. Please clarify the etiology of the symptom of Altered Mental Status: [ X ] [Metabolic encephalopathy due to hypoglycemia [ ] Other condition (please specify) [ ] Unable to determine (Template Last Revised: July 2020) MTDD
[2022-12-03] MEDS: RIVAROXABAN 20 MG TAB PO SCH (17:54)
[2022-12-03 18:27] LABS: Glucose,Whole Blood 192 mg/dL (70-110)
[2022-12-03 20:37] LABS: Glucose,Whole Blood 212 mg/dL (70-110)
--- NOTE | 2022-12-03 23:32 | P.PN ---
Subjective Progress Note Date: 12/03/22 Pt continues on rocephin and flagyl, continues on 4 LPM O2. Procalcitonin elevated at 0.21 Objective - Vital Signs Vital signs: Vital Signs Temp 97.5 F L 12/03/22 20:00 Pulse 92 12/03/22 20:35 Resp 18 12/03/22 20:00 BP 97/59 12/03/22 20:00 Pulse Ox 95 12/03/22 20:00 FiO2 Intake & Output 12/03/22 12/03/22 12/04/22 06:59 18:59 06:59 Intake Total 1080 Balance 1080 Intake: Oral 1080 Other: # Voids 2 2 - Exam Gen: elderly male in NAD CV: Irregular, no murmur Lungs: Crackles and wheezing throughout - Labs CBC & Chem 7: 12/03/22 10:40 12/02/22 14:48 Labs: Abnormal Lab Results - Last 24 Hours (Table) 12/02/22 12/02/22 12/03/22 Range/Units 14:48 23:54 01:59 Monocytes # (Manual) (0-1.0) k/uL POC Glucose (mg/dL) 134 H 141 H (70-110) mg/dL Hemoglobin A1c 7.4 H (<=6.0) % Procalcitonin (0.02-0.09) ng/mL 12/03/22 12/03/22 12/03/22 Range/Units 04:28 05:46 08:21 Monocytes # (Manual) (0-1.0) k/uL POC Glucose (mg/dL) 136 H 144 H 140 H (70-110) mg/dL Hemoglobin A1c (<=6.0) % Procalcitonin (0.02-0.09) ng/mL 12/03/22 12/03/22 12/03/22 Range/Units 10:14 10:40 10:40 Monocytes # (Manual) 1.08 H (0-1.0) k/uL POC Glucose (mg/dL) 134 H (70-110) mg/dL Hemoglobin A1c (<=6.0) % Procalcitonin 0.21 H (0.02-0.09) ng/mL 12/03/22 12/03/22 12/03/22 Range/Units 11:55 14:00 16:10 Monocytes # (Manual) (0-1.0) k/uL POC Glucose (mg/dL) 113 H 170 H 144 H (70-110) mg/dL Hemoglobin A1c (<=6.0) % Procalcitonin (0.02-0.09) ng/mL 12/03/22 12/03/22 Range/Units 18:25 20:35 Monocytes # (Manual) (0-1.0) k/uL POC Glucose (mg/dL) 192 H 212 H (70-110) mg/dL Hemoglobin A1c (<=6.0) % Procalcitonin (0.02-0.09) ng/mL Microbiology - Last 24 Hours (Table) 12/02/22 04:05 Gram Stain - Preliminary Sputum Sputum Culture - Preliminary 12/01/22 11:05 Blood Culture - Preliminary Blood 12/01/22 11:20 Blood Culture - Preliminary Blood Assessment and Plan Plan: Continue with rocephin, flagyl. Follow cultures and blood counts. Cardiology following. Continue with sliding scale insulin. Wean O2 as tolerated
[2022-12-04 01:13] LABS: Glucose,Whole Blood 135 mg/dL (70-110)
[2022-12-04] MEDS: metroNIDAZOLE-NS PMX 500 MG in SALINE 1 100ML.BAG IVPB SCH ×3 (01:30→16:24)
[2022-12-04 04:14] LABS: Glucose,Whole Blood 134 mg/dL (70-110)
[2022-12-04] MEDS: SODIUM CHLORIDE 0.9% 1,000 ML IV SCH ×2 (06:09→16:26)
[2022-12-04 06:11] LABS: Glucose,Whole Blood 120 mg/dL (70-110)
[2022-12-04] MEDS: INSULIN ASPART (NovoLOG) 100 UNIT/ML VIAL SQ SCH ×3 (07:47→16:27)
[2022-12-04] MEDS: ALBUTEROL NEBULIZED 2.5 MG/3 ML INHALATION SCH ×4 (07:57→20:46)
[2022-12-04] MEDS: METOPROLOL TARTRATE 50 MG TAB PO SCH ×2 (08:32→21:24)
[2022-12-04] MEDS: ATORVASTATIN 20 MG TAB PO SCH (08:32)
[2022-12-04 11:23] LABS: Glucose,Whole Blood 144 mg/dL (70-110)
--- NOTE | 2022-12-04 11:48 | P.PN ---
Subjective Progress Note Date: 12/04/22 HISTORY OF PRESENTING ILLNESS Patient is a pleasant 67-year-old male with history of diabetes mellitus type 2, obstructive sleep apnea,hypertension, reports of some arrhythmia (seeing Dr Shelton in the past) who presents secondary to weakness, altered mental status. Patient has had decreased appetite, feeling sick and diarrhea every few hours or the past 1 week. Patient's has had similar symptoms however not as severe. Patient is feeling more confused and therefore EMS called and found to have low glucose. Glucose was corrected and currently feels somewhat better however still mildly confused. EKG did show irregular rhythm without any obvious P waves however some artifact however appears consistent with A. fib. He has not been on any telemetry. He does appear irregular on exam. He states he was placed on blood thinners in the past however "did not like them "because they caused to be cold. Did not have any significant hematochezia or melena. Currently heart rates have been controlled. BUN 28, creatinine 1.1, troponin negative 1, bilirubin 1.7, white blood cell 6.4, hemoglobin 16.5. 12/03 Patient is seen today in follow-up. Reviewed documentation from the office and patient was last seen in 2014 but is known to have A. fib. At that time, EF was 35% and he also underwent a JASS and cardioversion for atrial flutter converting to sinus rhythm. Echocardiogram will be ordered. Patient is currently in a sinus rhythm. Heart rate is in the 70s and 80s, blood pressure 115/74, pulse ox 96% on 4 L. Blood work for today results are pending. 12/04 Patient is seen today in follow-up. His heart rate is running in the 70s and 80s. Telemetry is atrial fibrillation but was sinus rhythm yesterday afternoon. Yesterday we started him on Xarelto. He continues to complain of cough he denies any wheezing. In general he feels that he is getting along better. Mental status seems to be improved as well. Echocardiogram has been obtained and report is pending. PHYSICAL EXAMINATION Vital signs reviewed. CONSTITUTIONAL: No apparent distress. Obese HEENT: Head is normocephalic. Pupils are equal, round. Sclerae anicteric. Mucous membranes of the mouth are moist. No JVD. No carotid bruit. CHEST EXAMINATION: Lungs are clear to auscultation. No chest wall tenderness is noted on palpation or with deep breathing. HEART EXAMINATION: Irregular rate and rhythm. S1, S2 heard. No murmurs, gallops or rub. ABDOMEN: Soft, nontender. Positive bowel sounds. EXTREMITIES: 2+ peripheral pulses, no lower extremity edema and no calf tenderness, chronic dark skin changes to bilateral lower legs. NEUROLOGIC EXAMINATION: Patient is awake, alert, confused ASSESSMENT 1. Altered mental status, likely mainly related to hypoglycemia 2. Recent decreased appetite, nausea, diarrhea appears GI source 3. EKG appears consistent with A. fib, with prior history of paroxysmal A. fib 4. Hypertension 5. Diabetes mellitus type 2 6. Obesity 7. Obstructive sleep apnea PLAN Continue current cardiac medications: Atorvastatin 20 mg daily, Lopressor 100 mg twice daily Obtain 2-D echocardiogram report Continue patient on Xarelto 20 mg daily Further recommendations as patient progresses. Nurse practitioner note has been reviewed, I agree with the documented findings and plan of care. Patient was seen and examined. Objective - Vital Signs Vital signs: Vital Signs Temp 98.1 F 12/04/22 07:31 Pulse 80 12/04/22 11:24 Resp 18 12/04/22 07:31 BP 115/72 12/04/22 07:31 Pulse Ox 97 12/04/22 07:31 FiO2 Intake & Output 12/03/22 12/04/22 12/04/22 18:59 06:59 18:59 Intake Total 1080 Output Total 400 Balance 1080 -400 Intake: Oral 1080 Output: Urine 400 Other: # Voids 2 - Labs CBC & Chem 7: 12/03/22 10:40 12/02/22 14:48 Labs: Abnormal Lab Results - Last 24 Hours (Table) 12/03/22 12/03/22 12/03/22 Range/Units 10:40 10:40 11:55 Monocytes # (Manual) 1.08 H (0-1.0) k/uL POC Glucose (mg/dL) 113 H (70-110) mg/dL Procalcitonin 0.21 H (0.02-0.09) ng/mL 12/03/22 12/03/22 12/03/22 Range/Units 14:00 16:10 18:25 Monocytes # (Manual) (0-1.0) k/uL POC Glucose (mg/dL) 170 H 144 H 192 H (70-110) mg/dL Procalcitonin (0.02-0.09) ng/mL 12/03/22 12/04/22 12/04/22 Range/Units 20:35 01:11 04:13 Monocytes # (Manual) (0-1.0) k/uL POC Glucose (mg/dL) 212 H 135 H 134 H (70-110) mg/dL Procalcitonin (0.02-0.09) ng/mL 12/04/22 12/04/22 Range/Units 06:09 11:22 Monocytes # (Manual) (0-1.0) k/uL POC Glucose (mg/dL) 120 H 144 H (70-110) mg/dL Procalcitonin (0.02-0.09) ng/mL Microbiology - Last 24 Hours (Table) 12/02/22 04:05 Gram Stain - Final Sputum Sputum Culture - Final 12/01/22 11:05 Blood Culture - Preliminary Blood 12/01/22 11:20 Blood Culture - Preliminary Blood
--- NOTE | 2022-12-04 12:03 | CA ---
Transthoracic Echo Report Name: Kali Oreilly Age: 67 Gender: M : 1955 Exam Date: 12/04/2022 09:22 Exam Location: [place] [facility] Ht (in): 72 Wt (lb): 250 Ordering Physician: Stefanie Michele MD ([id number]) Attending/Referring Phys: Rcis Zenaida Knox [facility] Procedure CPT: Indications: afib Cardiac Hx: Technical Quality: Technically difficult study Contrast 1: Lumason Total Dose (mL): 5 Contrast 2: Total Dose (mL): MEASUREMENTS (Male / Female) Normal Values 2D ECHO LV Diastolic Diameter PLAX 5.8 cm 4.2 - 5.9 / 3.9 - 5.3 cm LV Systolic Diameter PLAX 4.1 cm IVS Diastolic Thickness 1.0 cm 0.6 - 1.0 / 0.6 - 0.9 cm LVPW Diastolic Thickness 1.1 cm 0.6 - 1.0 / 0.6 - 0.9 cm LV Relative Wall Thickness 0.4 M-MODE Aortic Root Diameter MM 3.6 cm LA Systolic Diameter MM 5.3 cm LA Ao Ratio MM 1.5 AV Cusp Separation MM 2.4 cm DOPPLER AV Peak Velocity 120.2 cm/s AV Peak Gradient 5.8 mmHg AV Mean Velocity 82.9 cm/s AV Mean Gradient 3.1 mmHg AV Velocity Time Integral 25.5 cm LVOT Peak Velocity 84.2 cm/s LVOT Peak Gradient 2.8 mmHg LVOT Velocity Time Integral 16.5 cm Mitral E Point Velocity 86.0 cm/s Mitral A Point Velocity 75.2 cm/s Mitral E to A Ratio 1.1 MV Deceleration Time 192.0 ms LV E' Lateral Velocity 10.7 cm/s Mitral E to LV E' Lateral Ratio 8.1 LV E' Septal Velocity 5.3 cm/s Mitral E to LV E' Septal Ratio 16.1 Right Atrial Pressure 8.0 mmHg FINDINGS Left Ventricle No obvious regional wall motion abnormalities. Mild left ventricular dilatation. Left ventricular ejection fraction is estimated at 50-55%. Right Ventricle Right ventricle not well visualized. Right Atrium Right atrium not well visualized. Left Atrium Normal left atrial size. Mitral Valve Structurally normal mitral valve. No mitral regurgitation. Aortic Valve Aortic valve not well visualized. No aortic valve stenosis or regurgitation. Tricuspid Valve Structurally normal tricuspid valve. No tricuspid regurgitation. Pulmonic Valve Pulmonic valve not well visualized. Pericardium No pericardial effusion. Aorta Aortic root and proximal ascending aorta not well visualized. CONCLUSIONS Lumason ECHO contrast used for improved visualization of the endocardial borders (inadequate visualization of two or more contiguous segments). Technically difficult study. Left ventricle systolic function borderline normal with no clear segmental wall motion abnormality Previewed by: Dr. Stefanie Michele MD (Electronically Signed) Final Date: 04 December 2022 12:02
[2022-12-04 16:24] LABS: Glucose,Whole Blood 132 mg/dL (70-110)
[2022-12-04] MEDS: RIVAROXABAN 20 MG TAB PO SCH (16:52)
--- NOTE | 2022-12-04 19:06 | P.PN ---
Subjective Progress Note Date: 12/04/22 Maintained on Rocephin and Flagyl, afebrile. Loose congested nonproductive cough. Sputum culture finalizing. Maintaining O2 sats in the 90s on 4 L nasal cannula. Chest x-ray completed yesterday reported stable right lower lobe infiltrate and small to moderate right pleural effusion, new left lower lobe i nfiltrate. Denies shortness of breath, reports chills. Sensorium improving, currently no sitter at bedside. Consuming 75-100% of meals with blood sugars controlled. Telemetry atrial fibrillation, ventricular rate controlled. Anticoagulated on Xarelto. Echo pending. Fluid bolused 1 yesterday afternoon, systolic blood pressures dropped into the 80s, soft but improved this morning. Objective - Vital Signs Vital signs: Vital Signs Temp 98.1 F 12/04/22 14:00 Pulse 76 12/04/22 15:25 Resp 18 12/04/22 14:00 BP 113/57 12/04/22 14:00 Pulse Ox 96 12/04/22 14:00 FiO2 Intake & Output 12/03/22 12/04/22 12/04/22 18:59 06:59 18:59 Intake Total 1080 Output Total 400 Balance 1080 -400 Intake: Oral 1080 Output: Urine 400 Other: # Voids 2 2 # Bowel Movements 1 - Exam Gen: elderly obese male in NAD CV: Irregular, no murmur Lungs: Rhonchi throughout - Labs CBC & Chem 7: 12/03/22 10:40 12/02/22 14:48 Labs: Abnormal Lab Results - Last 24 Hours (Table) 12/03/22 12/04/22 12/04/22 Range/Units 20:35 01:11 04:13 POC Glucose (mg/dL) 212 H 135 H 134 H (70-110) mg/dL 12/04/22 12/04/22 12/04/22 Range/Units 06:09 11:22 16:23 POC Glucose (mg/dL) 120 H 144 H 132 H (70-110) mg/dL Microbiology - Last 24 Hours (Table) 12/02/22 04:05 Gram Stain - Final Sputum Sputum Culture - Final 12/01/22 11:05 Blood Culture - Preliminary Blood 12/01/22 11:20 Blood Culture - Preliminary Blood Assessment and Plan Assessment: Altered mental status suspect related to hypoglycemia, secondary to decreased appetite, nausea, diarrhea. Now controlled. Possible bilateral community acquired pneumonia with moderate right pleural effusion, elevated pro calcitonin Moderate to severe chronic paranasal sinus disease and acute left frontal sinusitis. Acute diarrhea Possible gastroenteritis. Atrial fibrillation, persistent, history of paroxysmal atrial fibrillation Diabetes type II Obstructive sleep apnea Prior history of nicotine dependence Asthma not in exacerbation Hypertension Plan: Continue on current medication regime ,monitoring and symptomatic treatment. Maintain Rocephin, Flagyl. Cultures finalizing. Aggressive pulmonary toileting with incentive spirometer ordered. Increase ambulation as tolerated. Echo pending. The impression and plan of care has been dictated as directed. : I performed a history and examination of this patient, discussed the same with the dictator. I agree with the dictator's note ,documented as a scribe. Any additional findings or plans will be noted.
[2022-12-04 21:06] LABS: Glucose,Whole Blood 122 mg/dL (70-110)
[2022-12-05] MEDS: INSULIN ASPART (NovoLOG) 100 UNIT/ML VIAL SQ SCH ×5 (00:04→21:24)
[2022-12-05] MEDS: metroNIDAZOLE-NS PMX 500 MG in SALINE 1 100ML.BAG IVPB SCH ×3 (00:22→16:58)
[2022-12-05 02:51] LABS: Glucose,Whole Blood 103 mg/dL (70-110)
[2022-12-05 06:39] LABS: Glucose,Whole Blood 101 mg/dL (70-110)
[2022-12-05] MEDS: SODIUM CHLORIDE 0.9% 1,000 ML IV SCH (06:53)
[2022-12-05 07:50] LABS: HCT 44.6 % (39.0-53.0); HGB 14.2 gm/dL (13.0-17.5); Hypochromasia Slight; MCH 30.5 pg (25.0-35.0); MCHC 31.9 g/dL (31.0-37.0); MCV 95.4 fL (80.0-100.0); Mean Platelet Volume 7.5; Platelet Count 306 k/uL (150-450); RBC 4.67 m/uL (4.30-5.90); WBC 6.4 k/uL (3.8-10.6)
[2022-12-05] MEDS: METOPROLOL TARTRATE 50 MG TAB PO SCH ×2 (08:01→21:23)
[2022-12-05] MEDS: ATORVASTATIN 20 MG TAB PO SCH (08:01)
[2022-12-05] MEDS: ALBUTEROL NEBULIZED 2.5 MG/3 ML INHALATION SCH ×4 (08:20→20:46)
[2022-12-05 09:14] LABS: African American GFR (CKD) >90 (>60 ml/min/1.73 sqM); Anion Gap 3 mmol/L; Blood Urea Nitrogen 10 mg/dL (9-20); Calcium 7.8 mg/dL (8.4-10.2); Carbon Dioxide 31 mmol/L (22-30); Chloride 105 mmol/L (98-107); Glucose 113 mg/dL (74-99); Non-African American GFR(CKD) >90 (>60 ml/min/1.73 sqM); Potassium 4.1 mmol/L (3.5-5.1); Sodium 139 mmol/L (137-145)
--- NOTE | 2022-12-05 11:13 | P.PN ---
Subjective Progress Note Date: 12/05/22 HISTORY OF PRESENTING ILLNESS Patient is a pleasant 67-year-old male with history of diabetes mellitus type 2, obstructive sleep apnea,hypertension, reports of some arrhythmia (seeing Dr Shelton in the past) who presents secondary to weakness, altered mental status. Patient has had decreased appetite, feeling sick and diarrhea every few hours or the past 1 week. Patient's has had similar symptoms however not as severe. Patient is feeling more confused and therefore EMS called and found to have low glucose. Glucose was corrected and currently feels somewhat better however still mildly confused. EKG did show irregular rhythm without any obvious P waves however some artifact however appears consistent with A. fib. He has not been on any telemetry. He does appear irregular on exam. He states he was placed on blood thinners in the past however "did not like them "because they caused to be cold. Did not have any significant hematochezia or melena. Currently heart rates have been controlled. BUN 28, creatinine 1.1, troponin negative 1, bilirubin 1.7, white blood cell 6.4, hemoglobin 16.5. 12/03 Patient is seen today in follow-up. Reviewed documentation from the office and patient was last seen in 2014 but is known to have A. fib. At that time, EF was 35% and he also underwent a JASS and cardioversion for atrial flutter converting to sinus rhythm. Echocardiogram will be ordered. Patient is currently in a sinus rhythm. Heart rate is in the 70s and 80s, blood pressure 115/74, pulse ox 96% on 4 L. Blood work for today results are pending. 12/04 Patient is seen today in follow-up. His heart rate is running in the 70s and 80s. Telemetry is atrial fibrillation but was sinus rhythm yesterday afternoon. Yesterday we started him on Xarelto. He continues to complain of cough he denies any wheezing. In general he feels that he is getting along better. Mental status seems to be improved as well. Echocardiogram has been obtained and report is pending. 12/05 Patient is seen today in follow-up. Heart rate is running in the 70s and 80s, blood pressure 148/76. Telemetry is atrial fibrillation. Patient is maintained on atorvastatin, Lopressor 100 mg twice daily and Xarelto 20 mg daily. Patient is on IV antibiotics for possible pneumonia. Echocardiogram reveals technically difficult study. Left ventricular systolic function borderline normal with no clear segmental wall motion abnormality. PHYSICAL EXAMINATION Vital signs reviewed. CONSTITUTIONAL: No apparent distress. Obese HEENT: Head is normocephalic. Pupils are equal, round. Sclerae anicteric. Mucous membranes of the mouth are moist. No JVD. No carotid bruit. CHEST EXAMINATION: Lungs are clear to auscultation. No chest wall tenderness is noted on palpation or with deep breathing. HEART EXAMINATION: Irregular rate and rhythm. S1, S2 heard. No murmurs, gallops or rub. ABDOMEN: Soft, nontender. Positive bowel sounds. EXTREMITIES: 2+ peripheral pulses, no lower extremity edema and no calf te nderness, chronic dark skin changes to bilateral lower legs. NEUROLOGIC EXAMINATION: Patient is awake, alert ASSESSMENT 1. Altered mental status, likely mainly related to hypoglycemia 2. Recent decreased appetite, nausea, diarrhea appears GI source 3. EKG appears consistent with A. fib, with prior history of paroxysmal A. fib 4. Hypertension 5. Diabetes mellitus type 2 6. Obesity 7. Obstructive sleep apnea PLAN Continue current cardiac medications: Atorvastatin 20 mg daily, Lopressor 100 mg twice daily Continue patient on Xarelto 20 mg daily Patient is cleared for discharge from cardiology and may follow-up in the office in one week. We will follow on an as-needed basis. These reconsult for any new concerns. Nurse practitioner note has been reviewed, I agree with the documented findings and plan of care. Patient was seen and examined. Objective - Vital Signs Vital signs: Vital Signs Temp 98.3 F 12/05/22 07:38 Pulse 77 12/05/22 07:38 Resp 19 12/05/22 08:43 BP 148/76 12/05/22 07:38 Pulse Ox 92 L 12/05/22 08:43 FiO2 21 12/04/22 20:48 Intake & Output 12/04/22 12/05/22 12/05/22 18:59 06:59 18:59 Other: Voiding Method Urinal # Voids 2 2 # Bowel Movements 1 1 - Labs CBC & Chem 7: 12/05/22 07:28 12/05/22 07:28 Labs: Abnormal Lab Results - Last 24 Hours (Table) 12/04/22 12/04/22 12/04/22 Range/Units 11:22 16:23 21:01 Carbon Dioxide (22-30) mmol/L Creatinine (0.66-1.25) mg/dL Glucose (74-99) mg/dL POC Glucose (mg/dL) 144 H 132 H 122 H (70-110) mg/dL Calcium (8.4-10.2) mg/dL 12/05/22 Range/Units 07:28 Carbon Dioxide 31 H (22-30) mmol/L Creatinine 0.63 L (0.66-1.25) mg/dL Glucose 113 H (74-99) mg/dL POC Glucose (mg/dL) (70-110) mg/dL Calcium 7.8 L (8.4-10.2) mg/dL Microbiology - Last 24 Hours (Table) 12/01/22 11:05 Blood Culture - Preliminary Blood 12/01/22 11:20 Blood Culture - Preliminary Blood 12/02/22 04:05 Gram Stain - Final Sputum Sputum Culture - Final
[2022-12-05 11:28] LABS: Glucose,Whole Blood 95 mg/dL (70-110)
--- NOTE | 2022-12-05 12:48 | CDI ---
Documentation Clarification Form Date: 12/05/2022 10:27:00 AM From: Sylvia Arriaga RN, CCDS Admit Date: 12/01/2022 02:28:00 PM Patient Name: Kali Oreilly Visit Number: [id number] Discharge Date: ATTENTION: The Clinical Documentation Specialists (CDI) and [facility] Coding Staff appreciate your assistance in clarifying documentation. Please respond to the clarification below the line at the bottom and electronically sign. The CDI & [facility] Coding staff will review the response and follow-up if needed. Please note: Queries are made part of the Legal Health Record. If you have any questions, please contact the author of this message via ITS. Dr. David Schroeder Your patient has [insert documentation of symptoms or findings, with date, location]. Based on this information and the findings below, is there an additional diagnosis that is clinically appropriate for this patient? History/Risk Factors: Obstructive sleep apnea, Diabetes Mellitus, Asthma, Former smoker Tobacco use: Home oxygen: Clinical Indicators: 67-year-old male present with altered mental status, low blood sugar of 64. He had coarse breath sounds nonlabored breaths. Bibasilar diminished sounds on admission Right basilar opacity possible pneumonia per H/P 12/01 152/72 77 20 96.6 90 % RA, 95 % 4/L NC 12/02 (19:00) 92/53 92 20 99 % Ra 85 % RA 92 % 2/L NC 12/01 CXR: Unable to exclude atelectasis or airspace disease at the right base 12/03 Nursing notes: patient has been noncompliant with oxygen this shift. He repeatedly pulled his nasal cannula off and became confused as his O2 sats drop below 90 % 12/04 Attending progress notes: Loose congested nonproductive cough. Maintaining 02 sats in the 90s on 4L nasal cannula. CXR completed yesterday reports stable right lower lobe infiltrate and small to moderate right pleural effusion, new left lower lobe infiltrate. Denies shortness of breath, reports chills sensorium improving. 12/04 VS 113/57 76 18 98.1 96 % 4/L NC Treatment: Cardiac/Telemetry monitoring Monitor O2 Sats (Titrate) Ventolin Nebulized 2.5 MG inhalation QID 12/01-12/05 Aggressive pulmonary toileting with incentive spirometer Flagyl 500 MG IVPB Q 8 HRS 12/01-12/05 Rocephin 2 GM IVPB Q 24 HRS 12/02-12/05 (DC) Is there an additional diagnosis that is clinically appropriate for this patient? [ X ] Acute Hypoxic Respiratory Failure (pO2 <60 mm Hg or SpO2 <91% on room air) [ ] Acute Hypercapnic Respiratory Failure (pCO2 >50 and pH <7.35) [ ] Acute on Chronic hypoxic Respiratory Failure [ ] Chronic hypoxic Respiratory Failure [ ] Other Diagnosis, please specify [ ] Unable to determine (Template Last Revised: August 2020) MTDD
[2022-12-05 12:51] LABS: Eosinophils # (M) 0.19 k/uL (0-0.7); Lymphocytes # (M) 1.15 k/uL (1.0-4.8); Monocytes # (M) 0.83 k/uL (0-1.0); Myelocytes # (M) 0.06 k/uL (0); Myelocytes % 1 %; Neutrophils # (M) 4.22 k/uL (1.3-7.7); Neutrophils % (M) 66 %; Nucleated Red Blood Cells 0 /100 WBC (0-0); Total Cells Counted 200
[2022-12-05 16:26] LABS: Glucose,Whole Blood 110 mg/dL (70-110)
--- NOTE | 2022-12-05 16:43 | P.PN ---
Subjective Progress Note Date: 12/05/22 Maintained on Rocephin and Flagyl, afebrile. Loose congested nonproductive cough. Sputum culture finalizing. Maintaining O2 sats in the 90s on 4 L nasal cannula. Chest x-ray completed yesterday reported stable right lower lobe infiltrate and small to moderate right pleural effusion, new left lower lobe i nfiltrate. Denies shortness of breath, reports chills. Sensorium improving, currently no sitter at bedside. Consuming 75-100% of meals with blood sugars controlled. Telemetry atrial fibrillation, ventricular rate controlled. Anticoagulated on Xarelto. Echo pending. Fluid bolused 1 yesterday afternoon, systolic blood pressures dropped into the 80s, soft but improved this morning. 12/05/2022 up in chair, oxygen weaned down to 2 L maintaining O2 sats in the 90s. Echo reporting only function 50-55%. Blood sugars controlled. Telemetry atrial fibrillation with controlled ventricular rate. Anticoagulated on Xarelto. Objective - Vital Signs Vital signs: Vital Signs Temp 97.8 F 12/05/22 14:00 Pulse 83 12/05/22 14:00 Resp 18 12/05/22 14:00 BP 147/71 12/05/22 14:00 Pulse Ox 94 L 12/05/22 14:00 FiO2 21 12/04/22 20:48 Intake & Output 12/04/22 12/05/22 12/05/22 18:59 06:59 18:59 Other: Voiding Method Urinal # Voids 2 2 # Bowel Movements 1 1 - Exam Gen: elderly obese male in NAD CV: Irregular, no murmur Lungs: Equal air entry, lung sounds clear - Labs CBC & Chem 7: 12/05/22 07:28 12/05/22 07:28 Labs: Abnormal Lab Results - Last 24 Hours (Table) 12/04/22 12/05/22 12/05/22 Range/Units 21:01 07:28 07:28 Myelocytes # (Manual) 0.06 H (0) k/uL Carbon Dioxide 31 H (22-30) mmol/L Creatinine 0.63 L (0.66-1.25) mg/dL Glucose 113 H (74-99) mg/dL POC Glucose (mg/dL) 122 H (70-110) mg/dL Calcium 7.8 L (8.4-10.2) mg/dL Microbiology - Last 24 Hours (Table) 12/02/22 04:05 Legionella Culture - Preliminary Sputum 12/01/22 11:05 Blood Culture - Preliminary Blood 12/01/22 11:20 Blood Culture - Preliminary Blood Assessment and Plan Assessment: Altered mental status suspect related to hypoglycemia, secondary to decreased appetite, nausea, diarrhea. Now controlled. Possible bilateral community acquired pneumonia with moderate right pleural effusion, elevated pro calcitonin Moderate to severe chronic paranasal sinus disease and acute left frontal sinusitis. Acute diarrhea Possible gastroenteritis. Atrial fibrillation, persistent, history of paroxysmal atrial fibrillation Diabetes type II Obstructive sleep apnea Prior history of nicotine dependence Asthma not in exacerbation Hypertension Plan: Continue on current medication regime ,monitoring and symptomatic treatment. Continue IV antibiotics .Cultures finalizing. Maintain aggressive pulmonary toileting with incentive spirometer reinforced. Discussed with patient discharge plan dependent upon weaning off oxygen. Titration of O2 in progress. O2 sat on room air after ambulation pending. Discharge patient on 5 days of Augmentin. The impression and plan of care has been dictated as directed. : I performed a history and examination of this patient, discussed the same with the dictator. I agree with the dictator's note ,documented as a scribe. Any additional findings or plans will be noted.
[2022-12-05] MEDS: RIVAROXABAN 20 MG TAB PO SCH (16:58)
[2022-12-05 20:36] VITALS: RESP 19
[2022-12-05 21:12] LABS: Glucose,Whole Blood 105 mg/dL (70-110)
[2022-12-06] MEDS: metroNIDAZOLE-NS PMX 500 MG in SALINE 1 100ML.BAG IVPB SCH ×2 (00:19→08:19)
[2022-12-06 01:55] LABS: Glucose,Whole Blood 109 mg/dL (70-110)
[2022-12-06] MEDS: SODIUM CHLORIDE 0.9% 1,000 ML IV SCH ×2 (04:00→08:20)
[2022-12-06 06:09] LABS: Glucose,Whole Blood 106 mg/dL (70-110)
[2022-12-06] MEDS: INSULIN ASPART (NovoLOG) 100 UNIT/ML VIAL SQ SCH ×2 (06:36→11:51)
[2022-12-06] MEDS: ALBUTEROL NEBULIZED 2.5 MG/3 ML INHALATION SCH ×2 (08:01→11:20)
[2022-12-06] MEDS: METOPROLOL TARTRATE 50 MG TAB PO SCH (08:19)
[2022-12-06] MEDS: ATORVASTATIN 20 MG TAB PO SCH (08:19)
[2022-12-06 08:37] VITALS: BP 125/77; PULSE 87; TEMP 97.8
[2022-12-06] MEDS ORDERED: AMOXIC-POT CLAV 875-125MG 1 EACH TAB PO SCH (09:00)
--- NOTE | 2022-12-06 09:16 | XR ---
EXAMINATION TYPE: XR chest 2V DATE OF EXAM: 12/06/2022 COMPARISON: 12/03/2022 TECHNIQUE: PA and lateral views submitted. HISTORY: hypoxia FINDINGS: Bilateral consolidation and small effusion. There is elevation of the right hemidiaphragm.. Heart si ze normal and no overt failure. Osseous structures demonstrate hypertrophic and degenerative changes of the spine. IMPRESSION: 1. Stable bilateral lower lobe infiltrate and small effusion..
[2022-12-06 11:47] LABS: Glucose,Whole Blood 118 mg/dL (70-110)
--- NOTE | 2022-12-06 13:46 | P.DS ---
Providers Date of admission: 12/01/22 14:28 Expected date of discharge: 12/06/22 Attending physician: David Schroeder MD Consults: 12/01/22 23:25 Consult Physician Routine Consulting Provider: Keshawn Scott Consult Reason/Comments: ATundefib Do you want consulting provider notified?: Yes, Notify in am Primary care physician: David Schroeder MD Hospital Course: Final Diagnoses: Altered mental status suspect related to hypoglycemia, secondary to decreased appetite, nausea, diarrhea. Resolved Bilateral community acquired pneumonia with moderate right pleural effusion, elevated pro calcitonin Moderate to severe chronic paranasal sinus disease and acute left frontal sinusitis. Acute diarrhea Possible gastroenteritis. Atrial fibrillation, persistent, history of paroxysmal atrial fibrillation Diabetes type II Obstructive sleep apnea Prior history of nicotine dependence Asthma not in exacerbation Hypertension Hospital course:Maintained on Rocephin and Flagyl, afebrile. Loose congested nonproductive cough. Sputum culture finalizing. Maintaining O2 sats in the 90s on 4 L nasal cannula. Chest x-ray completed yesterday reported stable right lower lobe infiltrate and small to moderate right pleural effusion, new left lower lobe infiltrate. Denies shortness of breath, reports chills. Sensorium improving, currently no sitter at bedside. Consuming 75-100% of meals with blood sugars controlled. Telemetry atrial fibrillation, ventricular rate controlled. Anticoagulated on Xarelto. Echo pending. Fluid bolused 1 yesterday afternoon, systolic blood pressures dropped into the 80s, soft but improved this morning. 12/05/2022 up in chair, oxygen weaned down to 2 L maintaining O2 sats in the 90s. Echo reporting only function 50-55%. Blood sugars controlled. Telemetry atrial fibrillation with controlled ventricular rate. Anticoagulated on Xarelto. Significant clinical improvement. Patient will be discharged home today in a stable condition with guarded prognosis. O2 sat on room air after ambulation pending for potential oxygen at discharge. The impression and plan of care has been dictated as directed. : I performed a history and examination of this patient, discussed the same with the dictator. I agree with the dictator's note ,documented as a scribe. Any additional findings or plans will be noted. Patient Condition at Discharge: Stable Plan - Discharge Summary Discharge Rx Participant: No New Discharge Prescriptions: New Rivaroxaban [Xarelto] 20 mg PO W/SUPPER #30 tab Amoxic-Pot Clav 875-125Mg [Augmentin 875-125] 1 tab PO BID 5 Days #10 tab Pantoprazole [Protonix] 40 mg PO DAILY #30 tab Continue Pioglitazone [Actos] 45 mg PO DAILY Atorvastatin [Lipitor] 20 mg PO DAILY Metoprolol Tartrate [Lopressor] 100 mg PO BID glyBURIDE/METFORMIN HCL [Glucovance 5-500 mg] 1 tab PO BID Tirzepatide [Mounjaro] 5 mg SQ MO Discontinued ramipriL 2.5 mg PO DAILY Discharge Medication List Atorvastatin [Lipitor] 20 mg PO DAILY 12/01/22 [History] Metoprolol Tartrate [Lopressor] 100 mg PO BID 12/01/22 [History] Pioglitazone [Actos] 45 mg PO DAILY 12/01/22 [History] Tirzepatide [Mounjaro] 5 mg SQ MO 12/01/22 [History] glyBURIDE/METFORMIN HCL [Glucovance 5-500 mg] 1 tab PO BID 12/01/22 [History] Amoxic-Pot Clav 875-125Mg [Augmentin 875-125] 1 tab PO BID 5 Days #10 tab 12/05/22 [Rx] Pantoprazole [Protonix] 40 mg PO DAILY #30 tab 12/05/22 [Rx] Rivaroxaban [Xarelto] 20 mg PO W/SUPPER #30 tab 12/05/22 [Rx] Follow up Appointment(s)/Referral(s): David Schroeder MD [Primary Care Provider] - 12/10/22 2:45 pm (14) [facility],Equipment [NON-STAFF] - As Needed (Call [facility] once home to arrange delivery of the oxygen concentrator. ) Patient Instructions/Handouts: Bacterial Pneumonia (DC) Activity/Diet/Wound Care/Special Instructions: Discussed soares comparison of Eliquis vs. xarelto with [facility] downstairs,Eliquis was greater in cost, approx. $150.
== END 2022-12-06 13:14 | disposition home or self-care (01) | DRG 637 ==
LOC: EDBD → EC 10:59 → 4SSUR 14:28
PROVIDERS: ADMIT Family Medicine; ATTEND Family Medicine
DX: E11.649 Type 2 diabetes mellitus with hypoglycemia without coma (principal); G93.41 Metabolic encephalopathy; J96.01 Acute respiratory failure with hypoxia; J69.0 Pneumonitis due to inhalation of food and vomit; J18.9 Pneumonia, unspecified organism; J91.8 Pleural effusion in other conditions classified elsewhere; I48.19 Other persistent atrial fibrillation; I11.9 Hypertensive heart disease without heart failure; E66.9 Obesity, unspecified; J01.81 Other acute recurrent sinusitis; J01.10 Acute frontal sinusitis, unspecified; K52.9 Noninfective gastroenteritis and colitis, unspecified; G47.33 Obstructive sleep apnea (adult) (pediatric); I49.3 Ventricular premature depolarization; Z68.33 Body mass index [BMI] 33.0-33.9, adult; Z79.84 Long term (current) use of oral hypoglycemic drugs; Z87.891 Personal history of nicotine dependence; Z79.899 Other long term (current) drug therapy
CPT/HCPCS: 36410; 36415; 36600; 70450; 71045; 71046; 76937; 80048; 80053; 80306; 81001; 82140; 82805; 83036; 83605; 84145; 84443; 84484; 85025; 85610; 85730; 87040; 87070; 87205; 87449; 93005; 93306; 94640; 94760; 96365; 96366; 96368; 96375; 99285